=== PATIENT | female | born 1950 | race Caucasian/White ===

== ENCOUNTER 2018-12-20 12:26 | Inpatient (IN) | payer OTHER ==
[~2018-12-20] VITALS: Ht 162.6 cm; Wt 54.9 kg
[2018-12-20] VITALS (11 sets, daily range): BP systolic 80–115
[2018-12-20] MEDS ORDERED: DILTIAZEM HCL 25 MG/5 ML VIAL IVP ONE (12:45)
[2018-12-20] MEDS ORDERED: NS 500 ML IV ONE ×2 (12:45→13:15)
--- NOTE | 2018-12-20 12:45 | NUR ---
# 22 gauge angiocath placed to RAC. Use of asceptic technique. Opsite placed over site. Blood return noted. Blood for lab drawn from site. Flushed with 10 cc of normal saline. No evidence of infiltration noted. Patient tolerated well.
--- NOTE | 2018-12-20 12:50 | NUR ---
Cardiezm 20mg IVp given. Current HR is 98
--- NOTE | 2018-12-20 12:58 | NUR ---
NS 1L infusing. BP is 82/43.
--- NOTE | 2018-12-20 12:59 | NUR ---
pt getting labs drawn.
[2018-12-20 13:08] LABS: MEAN CORPUSCULAR HEMOGLOBIN 29 pg (27-31); MEAN CORPUSCULAR HGB CONC 32 % (32-36); MEAN CORPUSCULAR VOLUME 92 fL (79.0-98.0); PLATELET COUNT (AUTO) 74 K/uL (130-430); RED CELL DISTRIBUTION WIDTH 25.5 % (9.0-15.0)
--- NOTE | 2018-12-20 13:15 | NUR ---
Currently NS 500ml bolus.
[2018-12-20 13:19] LABS: RED BLOOD CELL COUNT(AUTO) 1.94 MIL/uL (4.2-6.2)
[2018-12-20 13:20] LABS: HEMOGLOBIN 5.7 g/dL (12.0-16.0)
[2018-12-20 13:21] LABS: HEMATOCRIT 17.8 % (36-48)
[2018-12-20 13:28] LABS: BILIRUBIN,URINE NEGATIVE (NEGATIVE); BLOOD, URINE TRACE (NEGATIVE); CLARITY/URINE HAZY (CLEAR); COLOR,URINE YELLOW (YELLOW); GLUCOSE,URINE NEGATIVE (NEGATIVE); KETONES,URINE NEGATIVE (NEGATIVE); LEUKOCYTE ESTERASE ,URINE NEGATIVE (NEGATIVE); NITRITE, URINE NEGATIVE (NEGATIVE); PROTEIN URINE TRACE (NEGATIVE)
[2018-12-20] MEDS ORDERED: DOPamine PREMIX 250 ML IV ONE ×2 (13:30→21:04)
[2018-12-20 13:39] LABS: BACTERIA,URINE FEW /HPF (None Seen); HYALINE CASTS, URINE 0-10 /LPF (None Seen); WBC,URINE 0-3 /HPF (0-3)
[2018-12-20 13:43] LABS: CALCIUM 8.6 mg/dL (8.4-11.0); CREATININE 2.68 mg/dL (0.55-1.30); POTASSIUM 3.8 mmol/L (3.5-5.1)
[2018-12-20] MEDS ORDERED: PIPERACILLIN/TAZO 3.375 GM in NS 50 ML IV ONE (13:45)
[2018-12-20 13:48] LABS: INR 1.5 (0.8-1.2)
[2018-12-20 13:50] LABS: ALBUMIN 1.8 g/dL (3.4-4.8)
--- NOTE | 2018-12-20 13:50 | NUR ---
Dopamine drip started at 2mcg. BP 81/33, 68 Addendum: 12/20/18 at 1411 by BOLIVARNGERARDO Dopmine drip started at 5mcg
[2018-12-20 13:52] LABS: PROTHROMBIN TIME 14.7 SECS (9.5-12.5)
[2018-12-20 14:03] LABS: BAND % (MANUAL) 17 % (0-6); BASOPHILS % (MANUAL) 0 % (0-2); EOSINOPHILS % (MANUAL) 0 % (0-7); LYMPHOCYTES % (MANUAL) 1 % (20-46); METAMYELOCYTES % 1 % (0-0); MONOCYTES % (MANUAL) 6 % (0-11)
--- NOTE | 2018-12-20 14:11 | NUR ---
Dopamine drip increased to 7mcg.
--- NOTE | 2018-12-20 14:14 | NUR ---
Dopamine drip increased to 9mcg.
--- NOTE | 2018-12-20 14:19 | NUR ---
Dopamine drip increased to 12mcg
--- NOTE | 2018-12-20 14:26 | NUR ---
Increased Dopamine drip 14mcg.
--- NOTE | 2018-12-20 14:30 | NUR ---
Zosyn currently infusing per MD order.
[2018-12-20] MEDS ORDERED: PIPERACILLIN/TAZOBACTAM 3.375 GM/VIAL (ZOSYN) IV ONE (14:37)
--- NOTE | 2018-12-20 15:41 | NUR ---
pt will be going to ICU 7. Pt will be admitted under the care of Dr. Waldron
[2018-12-20] MEDS ORDERED: PANTOPRAZOLE SODIUM 40 MG/VIAL (PROTONIX) IVP ONE (16:00)
--- NOTE | 2018-12-20 16:00 | NUR ---
Transfer to ICU 7 via ACLS protocol. Licensed nurse present. IV present no signs or symptoms of infiltration. Port-a-cath in place. Dopamine is infusing @14mcg. Report given to Cici MCKEON.
--- NOTE | 2018-12-20 16:02 | NUR ---
Opening Note Patient received via gurney and is placed in ICU-7. Patient connected to portable monitor with A-fib. Patient on 4L oxygen via nasal cannula breathing evenly and unlabored. Patient has a right chest port-a-cath infusing dopamine @ 14 mcg/min. Patient has a right forearm peripheral IV patent, flushing well, saline-locked. Patient does not complain of pain at this time. Patient in no signs of distress. Safety precautions enforced. Addendum: 12/20/18 at 1833 by Cici Hicks RN Patient is sinus tachy.
--- NOTE | 2018-12-20 17:37 | NUR ---
Blood Transfusion Patient currently receiving first unit of PRBCs. Patient in no signs of distress @ this time. No complaints of pain stated.
--- NOTE | 2018-12-20 17:45 | NUR ---
New consult paged to Dr. Quinonez, spoke with exchange Tameka.
--- NOTE | 2018-12-20 19:04 | NUR ---
Closing Note Patient endorsed to retail shift supervisor RN using SBAR format. Patient sleeping @ this time. No signs of distress noted.
--- NOTE | 2018-12-20 19:45 | NUR ---
the blood transfusion:#1/2 units has completed.no adverse reaction manifested.the blood is administered via a central line:location;rt.svc;port-a-cath.i have initiated the ns-flush via the rt.svc;port-a-cath.
--- NOTE | 2018-12-20 20:00 | NUR ---
pt.assessed.v/s assessed.pt.presents rt.svc;port-a-cath.pt.receiving the administration;dopamine-drip;dose-rate ;20mcq/kg/min. the dopamine-drip administered via peripheral line:location;rt.forearm.iv access intact;patent absent infiltration/ inflammation.pt.presents respiratory status;labored/compromised.pt.receiving the administration o2 therapy @2l /min via nasal cannulae.pt.capable to reposition self.diet status;npo.pt.had requested a blanket;i have provided the blanket; durbin. call light/telephone w/in reach of the pt.
--- NOTE | 2018-12-20 20:30 | NUR ---
;gi has assessed the pt.f/u possible gi bleed. surmised post assessment of the pt.that the low h/h is not r/t gi bleed.
[2018-12-20] MEDS ORDERED: VANCOMYCIN HCL 1 GM/NS PREMIX 250 ML IV ONE (21:00)
--- NOTE | 2018-12-20 21:00 | NUR ---
[id number] medications administered.i have assisted the pt.w/the bedpan.i have provided ice ships;small quantity. Addendum: 12/21/18 at 0207 by Artemio Purcell RN telephoned the unit.i apprised that the pt.presented labored breathing. ordered hhn-treatments;q-4hrs/hhn:q-1hr/p;sob,wheezes.
[2018-12-20] MEDS ORDERED: VANCOMYCIN HCL 1000 MG/VIAL IV ONE (21:04)
[2018-12-20] MEDS ORDERED: PIPERACILLIN/TAZOBACTAM 2.25 GM VIAL IV ONE (21:04)
--- NOTE | 2018-12-20 21:30 | NUR ---
i have initiated the administration of the #2/2 units prbc's.
[2018-12-20] MEDS: IPRATROPIUM BROM 0.5 MG/2.5 ML VIAL.NEB (ATROVENT) INH SCH ×2 (21:31→23:00)
[2018-12-20] MEDS: ALBUTEROL SULFATE 0.083% 2.5 MG/3 ML VIAL.NEB INH SCH ×2 (21:31→23:00)
[2018-12-20] MEDS: PANTOPRAZOLE SODIUM 40 MG/VIAL (PROTONIX) IVP SCH (21:39)
[2018-12-20] MEDS: PIPERACILLIN/TAZO 2.25G/DEX-IS 50 ML IV SCH (21:40)
--- NOTE | 2018-12-20 21:58 | NUR ---
MD EDUARDO Called Dr. Rose's answering service for a morning consult for A-FIB [phone] Spoke to Clare
[2018-12-20] MEDS: D5NS 1,000 ML IV SCH (22:56)
--- NOTE | 2018-12-20 23:00 | NUR ---
pt.requested assistance w/ the bedpan.i have assisted the pt.w/ the bedpan.blood transfusion infusing. call light/w/in reach of the pt.
--- NOTE | 2018-12-20 23:15 | NUR ---
IV IV inserted in right forearm after one attempt with 22ga angiocath. IV site flushed with 5ml of NS no redness or swelling noted @ site.
[2018-12-21] VITALS (24 sets, daily range): BP systolic 73–155
--- NOTE | 2018-12-21 | NUR ---
pt assessed.v/s assessed.blood transfusion in progress.no adverse reaction manifested.dopamine-drip infusing via peripheral line;location rt.forearm:intact;patent;absent infiltration/inflammation.o2-sat%=98%respiratory status:labored.breathing pattern/character. iv fluids infusing.no co pain,nausea.pt.capable to reposition self.call light/telephone w/in reach of the pt.
--- NOTE | 2018-12-21 00:30 | NUR ---
the blood transfusion #2/2 units has completed.no adverse reaction manifested.pt.requested assistance w the bedpan. i have assisted the pt w/ bedpan.i have noted has order diet status;clear liquids.i have apprised the pt..i have provided water pitcher,cups,kleenex boxes,toiletries.i have provide ice chips. luisrn/chg has es-tablish an additional iv access.rt.forearm.
--- NOTE | 2018-12-21 01:00 | NUR ---
i have decreased the dopamine-drip rate to 17mcq/kg/min.2/t b/p status.
[2018-12-21] MEDS: IPRATROPIUM BROM 0.5 MG/2.5 ML VIAL.NEB (ATROVENT) INH PRN (01:14)
[2018-12-21] MEDS: ALBUTEROL SULFATE 0.083% 2.5 MG/3 ML VIAL.NEB INH PRN (01:15)
[2018-12-21 01:24] LABS: HEMATOCRIT 27.2 % (36-48); HEMOGLOBIN 9.4 g/dL (12.0-16.0)
--- NOTE | 2018-12-21 01:30 | NUR ---
pt.requested hhn-treatment.r/t apprised applied the hhn-treatment.i have apprised the pt lefty/rebeka for suction. pt.has return the demonstration and is capable to suction self.
--- NOTE | 2018-12-21 03:00 | NUR ---
i have assisted the pt.w/the bedpan.no additional requests.
--- NOTE | 2018-12-21 03:10 | NUR ---
MD EDUARDO Called [facility] for Dr. Waldron. Dr. Benavides air pollution inspector [phone] Spoke to Lisa
--- NOTE | 2018-12-21 03:33 | NUR ---
MD EDUARDO Called [facility] for a second time for Dr. Benavides [phone] Spoke with Michelle
--- NOTE | 2018-12-21 03:45 | NUR ---
DR NBA Benavides notified regarding one time order for Dopamine and pt having elevated heart rate and low BP. Orders received. Levophed drip 4mg in 250 D5W, titrate to maintain SBP greater than 90.
--- NOTE | 2018-12-21 04:00 | NUR ---
pt.nate.tre;rn/chg has apprised of the pt's status.low b/p.rapid heart rate. has ordered levophed-drip. i have initiated the administration levophed-dose rate:5mcq/min.rate 18ml/hr.via central line;rt.svc;port-a-cath.no c/o pain,nausea. pt.capable to reposition self.no requests posited @this hour.hanny light/telephone w/in reach of the pt.
[2018-12-21] MEDS ORDERED: NOREPINEPHRINE 4 MG/4 ML VIAL IV ONE (04:01)
[2018-12-21] MEDS: NOREPINEPHRINE BITARTRATE 4 MG in D5W 246 ML IV PRN ×2 (04:02→18:50)
--- NOTE | 2018-12-21 05:45 | NUR ---
i have assisted the pt w/the bedpan.i have changed the central line dsg per protocol.i have administered zosyn:0600a dose. pt.repositioned.call light/telephone placed w/in the reach of the pt.
[2018-12-21] MEDS: PIPERACILLIN/TAZO 2.25G/DEX-IS 50 ML IV SCH ×3 (05:46→22:26)
--- NOTE | 2018-12-21 06:47 | NUR ---
Nutrition Update Ceferino Scale 14 noted. Pt admitted for Gastrointestinal Bleed Diet: Clear liquid BMI: 20.9 kg/m2 RD to follow per nutrition care standards.
[2018-12-21 07:02] LABS: HEMATOCRIT 26.2 % (36-48); HEMOGLOBIN 8.9 g/dL (12.0-16.0)
[2018-12-21 07:09] LABS: ALBUMIN 1.3 g/dL (3.4-4.8); CALCIUM 7.6 mg/dL (8.4-11.0); CREATININE 1.55 mg/dL (0.55-1.30); TOTAL BILIRUBIN 1.9 mg/dL (0.0-1.0)
--- NOTE | 2018-12-21 07:20 | NUR ---
Received patient and report from NOC shift. In no acute distress.
[2018-12-21] MEDS: IPRATROPIUM BROM 0.5 MG/2.5 ML VIAL.NEB (ATROVENT) INH SCH ×5 (07:48→23:00)
[2018-12-21] MEDS: ALBUTEROL SULFATE 0.083% 2.5 MG/3 ML VIAL.NEB INH SCH ×5 (07:48→23:00)
[2018-12-21] MEDS ORDERED: NACL 0.9% 1,000 ML IV ONE (08:00)
--- NOTE | 2018-12-21 08:01 | NUR ---
CONSULT PULMO. DR. MEYER CALLED (DR. [facility]ES [facility]ICAL DOCTOR) SPOKE TO ZAYRA DIALED [phone] TINAJERO
[2018-12-21] MEDS: VANCOMYCIN HCL 750 MG in NS 250 ML IV SCH (09:48)
[2018-12-21] MEDS: PANTOPRAZOLE SODIUM 40 MG/VIAL (PROTONIX) IVP SCH ×2 (09:48→20:26)
--- NOTE | 2018-12-21 09:50 | NUR ---
MD Welsh new orders for esposito catheter placement and SCDs.
[2018-12-21] MEDS ORDERED: KCL 40 mEq in 100 mL (PREMIX) 100 ML IV ONE (10:15)
[2018-12-21] MEDS ORDERED: ALBUMIN HUMAN 25% 50 ML IV ONE (10:15)
[2018-12-21] MEDS ORDERED: ONDANSETRON HCL 4 MG/2 ML VIAL IVP PRN (10:15)
--- NOTE | 2018-12-21 10:30 | NUR ---
Inserted esposito catheter 16 wolof, patient tolerated well.
--- NOTE | 2018-12-21 11:23 | NUR ---
CONSULT ONCOLOGY DR. BARBA CALLED (DR. ZUNIGA [employer]) SPOKE TO ZAYRA DIALED [phone] CREWS
[2018-12-21] MEDS: D5NS 1,000 ML IV SCH ×2 (11:30→20:27)
--- NOTE | 2018-12-21 11:50 | NUR ---
Patient stated has 7/10 pain related to chest. Notified MD Bal, new order morphine 2 mg every 4 hours PRN.
--- NOTE | 2018-12-21 12:00 | NUR ---
MD Bal at bedside, approved order for PICC.
[2018-12-21] MEDS ORDERED: MORPHINE 2 MG/ML INJ. SYRINGE IVP PRN (12:30)
--- NOTE | 2018-12-21 12:30 | NUR ---
Patient's signed consent for PICC line as requested by patient.
--- NOTE | 2018-12-21 13:17 | NUR ---
PICC nurse Jorge requested to contact nephro for consent for PICC nurse, paged MD Barriga, order denied. New order triple lumen IJ performed by surgery.
[2018-12-21 13:26] LABS: HEMATOCRIT 24.1 % (36-48); HEMOGLOBIN 8.1 g/dL (12.0-16.0)
--- NOTE | 2018-12-21 13:35 | NUR ---
Informed family MD Barriga's denial of PICC line order and new order for triple lumen IJ surgery placed by surgeon, family refused. Educated family benefits and risks of triple lumen.
[2018-12-21] MEDS: HYDROCORTISONE SOD SUCC 100 MG/2 ML VIAL IVP SCH ×2 (15:08→22:25)
[2018-12-21] MEDS: METOCLOPRAMIDE HCL 10 MG/2 ML VIAL IVP SCH ×2 (15:08→22:25)
--- NOTE | 2018-12-21 17:00 | NUR ---
MD Barriga at bedside.
[2018-12-21] MEDS ORDERED: ALBUMIN HUMAN 25% 100 ML IV ONE (18:00)
--- NOTE | 2018-12-21 19:15 | NUR ---
Endorsed patient and report to oncoming shift nurse. Patient in no acute distress.
--- NOTE | 2018-12-21 19:20 | NUR ---
PM SHIFT ASSESSMENT Pt is alert and oriented. O2 via NC @ 4L, RR even and unlabored. SR noted on monitor. Skin warm and dry. Salas catheter in place and draining to gravity. IVF infusing, no signs of infiltration noted. Safety precautions in place, call light within reach. Will continue to monitor.
[2018-12-22] VITALS (25 sets, daily range): BP systolic 104–139
[2018-12-22] MEDS: D5NS 1,000 ML IV SCH ×2 (02:30→13:33)
[2018-12-22] MEDS: ALBUTEROL SULFATE 0.083% 2.5 MG/3 ML VIAL.NEB INH SCH ×6 (04:10→23:00)
[2018-12-22] MEDS: IPRATROPIUM BROM 0.5 MG/2.5 ML VIAL.NEB (ATROVENT) INH SCH ×6 (04:12→23:00)
[2018-12-22] MEDS: METOCLOPRAMIDE HCL 10 MG/2 ML VIAL IVP SCH ×3 (05:46→21:55)
[2018-12-22] MEDS: HYDROCORTISONE SOD SUCC 100 MG/2 ML VIAL IVP SCH ×3 (05:46→21:56)
[2018-12-22] MEDS: PIPERACILLIN/TAZO 2.25G/DEX-IS 50 ML IV SCH ×3 (05:47→21:55)
[2018-12-22] MEDS: NOREPINEPHRINE BITARTRATE 4 MG in D5W 246 ML IV PRN ×2 (05:56→21:57)
[2018-12-22 06:13] LABS: ALBUMIN 1.6 g/dL (3.4-4.8); CALCIUM 7.6 mg/dL (8.4-11.0); CREATININE 1.09 mg/dL (0.55-1.30)
[2018-12-22 06:19] LABS: HEMATOCRIT 22.4 % (36-48); HEMOGLOBIN 7.7 g/dL (12.0-16.0); MEAN CORPUSCULAR HEMOGLOBIN 30 pg (27-31); MEAN CORPUSCULAR HGB CONC 35 % (32-36); MEAN CORPUSCULAR VOLUME 87 fL (79.0-98.0); RED BLOOD CELL COUNT(AUTO) 2.57 MIL/uL (4.2-6.2); RED CELL DISTRIBUTION WIDTH 22.4 % (9.0-15.0)
[2018-12-22 06:26] LABS: POTASSIUM 2.6 mmol/L (3.5-5.1)
[2018-12-22 06:45] LABS: PLATELET COUNT (AUTO) 37 K/uL (130-430)
--- NOTE | 2018-12-22 06:54 | NUR ---
paged dr. ritchie for critical labs per nurse dialed [phone] spoke to davida
--- NOTE | 2018-12-22 07:23 | NUR ---
paged dr. jose for critical labs per nurse dialed [phone] spoke to hazel
--- NOTE | 2018-12-22 07:28 | NUR ---
ENDORSEMENT Pt care endorsed to dayshift RN using nursing SBAR.
[2018-12-22] MEDS ORDERED: KCL 40 mEq in 100 mL (PREMIX) 100 ML IV ONE (07:30)
[2018-12-22 07:41] LABS: BAND % (MANUAL) 16 % (0-6); BASOPHILS % (MANUAL) 0 % (0-2); EOSINOPHILS % (MANUAL) 0 % (0-7); LYMPHOCYTES % (MANUAL) 2 % (20-46); MONOCYTES % (MANUAL) 2 % (0-11)
--- NOTE | 2018-12-22 08:00 | NUR ---
RN OPENING NOTE PATIENT IS RESTING IN BED. ALERT ORIENTED X4, PATIENT DENIES PAIN OR DISCOMFORT. PATIENT WAS ASSESSED, VITAL SIGNS ARE STABLE. PATIENT'S BED AT LOW POSITION AND CALL LIGHT WITHIN REACH, REPORTED THE LOW HB LEVEL AND LOW PLATLETS WELL LOW k TO DR. CREWS. ORDERS RECEIVED TO TRANSFUSE 1 UNIT PRBCS, ONE UNIT PLATLETS AND GIVE A POTASSIUM RIDER OF 40 MEQ, WILL FOLLOW UP.
[2018-12-22] MEDS: VANCOMYCIN HCL 750 MG in NS 250 ML IV SCH (08:56)
[2018-12-22] MEDS: PANTOPRAZOLE SODIUM 40 MG/VIAL (PROTONIX) IVP SCH ×2 (08:57→21:25)
--- NOTE | 2018-12-22 10:00 | NUR ---
RN NOTE FAMILY BY BED SIDE, PATIENT AND FAMILY WERE EDUCATED ABOUT THE DISEASE PROCESS , FALL PREVENTION, PATIENT WAS GIVEN HER MEDICATION, POTASSIUM RIDER WERE HUNG FOR THE PATIENT, AWAITING THE BLOOD AND PLATLETS. TO BE TRANSFUSED WHEN BECOME READY, WILL CONTINUE TO MONITOR.
--- NOTE | 2018-12-22 11:27 | NUR ---
RN NOTE STARTED BLOOD TRANSFUSION OF ONE UNIT PRBcs at 1115 AM. vital signs were taken , will wait in the room with the patient for the coming 15 min after starting the blood and take the second vital signs then will follow up with the patient closely.
--- NOTE | 2018-12-22 12:20 | NUR ---
RN NOTE PATIENT WAS SERVED HER LUNCH, IS BY THE BEDSIDE, PATIENT'S IS STILL RECEIVING HER BLOOD TRANSFUSION. DENIES PAIN OR SOB. WILL CONTINUE TO MONITOR.
--- NOTE | 2018-12-22 13:30 | NUR ---
RN NOTE PATIENT IS DONE WITH BLOOD TRANSFUSION, WILL REQUEST THE PLATELETS AFTER GIVING THE PATIENT HER VANCOMYCIN. WILL CONTINUE TO MONITOR. Addendum: 12/22/18 at 1912 by Lina Zhao RN AFTER GIVING THE PATIENT HER ZOSYN AND NOT VANCO
--- NOTE | 2018-12-22 16:00 | NUR ---
RN NOTE PATIENT IS RESTING IN BED, PATIENT HAS A BM WAS CLEANED UP, PLATELETS WERE REQUESTED FROM THE BLOOD BANK, PATIENT WAS EDUCATED ABOUT ANEMIA AND HOW TO PREVENT FALLS WILL CONTINUE TO MONITOR.
--- NOTE | 2018-12-22 18:00 | NUR ---
RN CLOSING NOTE PATIENT IS RESTING IN BED, PATIENT HAS ANOTHER BM, LOOSE NO MELENA OR BLOOD. TALKED WITH DR. SARAVIA ABOUT HER STOOL. PATIENT GOT HER DINNER AND WE STARTED HER PLATELET TRANSFUSION, , THEN PATIENT WAS SERVED HER DINNER, IS BY BEDSIDE, WILL ENDORSE TO NEXT SHIFT.
--- NOTE | 2018-12-22 20:00 | NUR ---
AWAKE, ALERT, ORIENTED. IN NO APPARENT DISTRESS. DENIES ACUTE PAIN. ON O2 AT 3L/MIN/NC. BREATH SOUNDS WITH OCCASIONAL WHEEZING. BOWEL SOUNDS (+). PULSES PALPABLE. SKIN W/D. COLOR SATISFACTORY. HOB UP TO COMFORT. SIDE RAILS UP. CALL LIGHTS WITHIN REACH. RIGHT SC MISTY-CATH DRSG D/I. LEVOPHED DRIP INFUSING AT 4 MCG/MIN. HAYES CATH PATENT DRAINING HAZY ANAMARIA URINE TO GRAVITY. NICCI SCD'S IN PLACE.PLATELETPHERESIS INFUSING. SINUS RHYTHM. AT BEDSIDE VISITING.
--- NOTE | 2018-12-22 21:15 | NUR ---
PLATELETPHERESIS ALL INFUSED. NO ADVERSE REACTIONS.
[2018-12-23] VITALS (25 sets, daily range): BP systolic 106–138
--- NOTE | 2018-12-23 | NUR ---
SOUNDLY ASLEEP. NO DISTRESS NOTED. ABLE TO REPOSITION SELF WELL.
--- NOTE | 2018-12-23 02:00 | NUR ---
DOZES ON AND OFF. VOICE VERY SOFT, ALMOST WHISPERING.
[2018-12-23] MEDS: D5NS 1,000 ML IV SCH ×2 (03:16→08:38)
--- NOTE | 2018-12-23 03:25 | NUR ---
C/O STUFFY NOSE. BREATHING TREATMENT GIVEN BY RT
[2018-12-23] MEDS: ALBUTEROL SULFATE 0.083% 2.5 MG/3 ML VIAL.NEB INH SCH ×6 (03:33→23:00)
[2018-12-23] MEDS: IPRATROPIUM BROM 0.5 MG/2.5 ML VIAL.NEB (ATROVENT) INH SCH ×6 (03:33→23:00)
--- NOTE | 2018-12-23 04:00 | NUR ---
SLEPT INTERMITTENTLY. NO COMPLAINTS OFFERED AT THIS TIME.
--- NOTE | 2018-12-23 06:00 | NUR ---
SLEPT FOR LONG PERIODS OF TIME. UO ADEQUATE. NO COMPLAINTS OFFERED AT THIS TIME. REMAINS IN GUARDED CONDITION.
--- NOTE | 2018-12-23 06:00 | NUR ---
SLEPT FOR LONG PERIODS OF TIME.
[2018-12-23 06:09] LABS: BASOPHILS % (AUTO) 0.2 % (0.0-2.0); HEMATOCRIT 26.3 % (36-48); HEMOGLOBIN 8.9 g/dL (12.0-16.0); LYMPHOCYTES # (AUTO) 0.2 K/uL (1.0-5.5); MEAN CORPUSCULAR HEMOGLOBIN 30 pg (27-31); MEAN CORPUSCULAR HGB CONC 34 % (32-36); MEAN CORPUSCULAR VOLUME 88 fL (79.0-98.0); MONOCYTES # (AUTO) 0.3 K/uL (0.0-1.0); MONOCYTES % (AUTO) 3.3 % (1.7-9.3); NEUTROPHILS # (AUTO) 7.1 K/uL (1.8-7.7); NEUTROPHILS % (AUTO) 94.5 % (40.0-70.0); PLATELET COUNT (AUTO) 54 K/uL (130-430); RED BLOOD CELL COUNT(AUTO) 2.98 MIL/uL (4.2-6.2); RED CELL DISTRIBUTION WIDTH 20.1 % (9.0-15.0); WHITE BLOOD COUNT (AUTO) 7.5 K/uL (4.8-10.8)
[2018-12-23 06:26] LABS: ALBUMIN 1.5 g/dL (3.4-4.8); CALCIUM 7.9 mg/dL (8.4-11.0); CREATININE 0.99 mg/dL (0.55-1.30); TOTAL BILIRUBIN 1.3 mg/dL (0.0-1.0)
[2018-12-23] MEDS: METOCLOPRAMIDE HCL 10 MG/2 ML VIAL IVP SCH ×3 (06:30→21:32)
[2018-12-23] MEDS: HYDROCORTISONE SOD SUCC 100 MG/2 ML VIAL IVP SCH ×3 (06:30→21:32)
[2018-12-23] MEDS: PIPERACILLIN/TAZO 2.25G/DEX-IS 50 ML IV SCH ×3 (06:31→21:31)
--- NOTE | 2018-12-23 06:49 | NUR ---
PAGED DR. MARES FOR CRITICAL LABS PER NURSE DIALED [phone] SPOKE TO MYKE
--- NOTE | 2018-12-23 07:00 | NUR ---
DR ARANGO RETURNED CALL, POTASSIUM 2.7 REPORTED. WANTED TO KNOW BUN/CREATININE. RESULTS STILL PENDING. ORDERED TO CALL HER BACK WHEN BUN/CREATININE RESULTS ARE AVAILABLE. RELAYED TO LUIS MIGUEL MCKEON , AM SHIFT.
[2018-12-23 07:13] LABS: POTASSIUM 2.7 mmol/L (3.5-5.1)
--- NOTE | 2018-12-23 07:20 | NUR ---
Opening Note Received plan of care via sbar from endorsing nurse Lico RN.
--- NOTE | 2018-12-23 07:27 | NUR ---
Called Dr. Reece and reported Potassium BUN and Creatinine. Received order for 40 meq KCL IV once.
[2018-12-23] MEDS ORDERED: KCL 40 mEq in 100 mL (PREMIX) 100 ML IV ONE (07:30)
[2018-12-23] MEDS: PANTOPRAZOLE SODIUM 40 MG/VIAL (PROTONIX) IVP SCH ×2 (08:38→21:31)
[2018-12-23] MEDS: VANCOMYCIN HCL 750 MG in NS 250 ML IV SCH (11:01)
[2018-12-23] MEDS: D5/0.45 NS 1,000 ML IV SCH (12:04)
--- NOTE | 2018-12-23 12:07 | NUR ---
SS Note: RETAIL COVERAGE MERCHANDISER was referred to see pt for DCP. RETAIL COVERAGE MERCHANDISER met with pt and spouse at bedside. Pt states she was diagnosed with lung CA in April 2018, and has been receiving chemotherapy treatment. Pt states prior to coming in she was independent with her ADL's. Pt also lives in a one sharon home with no steps to get to/from front door. Pt lives with spouse, Navi and finds support from her spouse. Pt denies any history of mental health and drug use, but was a smoker prior to Lung CA diagnosis. Pt denies being depressed currently. RETAIL COVERAGE MERCHANDISER provided pt/spouse with advanced directive, POLST and support group phone numbers. Pt/spouse stated that they want to focus on her treatment first and will look at support group after. Pt states they prefer to be discharged with home health with oxygen and no specific provider. Pt's spouse stated that Maryann (CM of HCP) will talk to them more about DCP. SS will remain available when needed.
--- NOTE | 2018-12-23 19:35 | NUR ---
Opening Note Pt in bed, AAO. Able to make needs known. Pt SR on the monitor, on 2L NC, saturating in the high 90s. Pt VSS. No s/s of distress noted. No pain noted. Pt has RFA 22g and Right Port-a-cath. IV site has IVF running. No s/s of infiltration noted. No skin breakdown noted, pt able to turn self. Bed locked in lowest position, call light in reach, and safety precautions in place. Will continue to monitor.
[2018-12-24] VITALS (15 sets, daily range): BP systolic 120–135
--- NOTE | 2018-12-24 00:30 | NUR ---
RN Rounds Pt in bed asleep. No s/s of distress noted. VSS. Pt able to make needs known. Will continue to monitor.
[2018-12-24] MEDS: IPRATROPIUM BROM 0.5 MG/2.5 ML VIAL.NEB (ATROVENT) INH SCH ×6 (03:00→23:00)
[2018-12-24] MEDS: ALBUTEROL SULFATE 0.083% 2.5 MG/3 ML VIAL.NEB INH SCH ×6 (03:00→23:00)
[2018-12-24] MEDS: D5/0.45 NS 1,000 ML IV SCH ×2 (03:46→17:27)
--- NOTE | 2018-12-24 04:45 | NUR ---
RN Rounds Pt in bed asleep. No s/s of distress noted. VSS. Will continue to monitor.
--- NOTE | 2018-12-24 05:30 | NUR ---
Pt c/o of SOB w/ saturations in the mid-high 80s. RT called, and PRN breathing Tx being done. Will continue to monitor.
[2018-12-24] MEDS: ALBUTEROL SULFATE 0.083% 2.5 MG/3 ML VIAL.NEB INH PRN (05:35)
[2018-12-24] MEDS: IPRATROPIUM BROM 0.5 MG/2.5 ML VIAL.NEB (ATROVENT) INH PRN (05:36)
[2018-12-24 06:00] LABS: HEMATOCRIT 31.1 % (36-48); HEMOGLOBIN 10.5 g/dL (12.0-16.0); MEAN CORPUSCULAR HEMOGLOBIN 30 pg (27-31); MEAN CORPUSCULAR HGB CONC 34 % (32-36); MEAN CORPUSCULAR VOLUME 89 fL (79.0-98.0); RED BLOOD CELL COUNT(AUTO) 3.51 MIL/uL (4.2-6.2); RED CELL DISTRIBUTION WIDTH 20.1 % (9.0-15.0)
[2018-12-24] MEDS: METOCLOPRAMIDE HCL 10 MG/2 ML VIAL IVP SCH ×3 (06:00→22:41)
[2018-12-24] MEDS: HYDROCORTISONE SOD SUCC 100 MG/2 ML VIAL IVP SCH ×3 (06:00→22:42)
[2018-12-24] MEDS: PIPERACILLIN/TAZO 2.25G/DEX-IS 50 ML IV SCH ×3 (06:00→22:41)
[2018-12-24 06:04] LABS: INR 1.1 (0.8-1.2); PROTHROMBIN TIME 11.5 SECS (9.5-12.5)
[2018-12-24 06:07] LABS: ALBUMIN 1.6 g/dL (3.4-4.8); CALCIUM 8.1 mg/dL (8.4-11.0); POTASSIUM 3.2 mmol/L (3.5-5.1); TOTAL BILIRUBIN 1.4 mg/dL (0.0-1.0)
--- NOTE | 2018-12-24 06:32 | NUR ---
Closing Note Pt in bed, AAO. SR on the monitor. 2L NC on w/ saturations in the high 90s. Pt not c/o of SOB anymore. No s/s of distress noted. IVF running, IV sites C/D/I. No s/s of infiltration noted. Pt has esposito catheter draining urine to gravity. Bed locked in lowest position, call light in reach, and safety precautions in place. Will continue to monitor.
--- NOTE | 2018-12-24 07:07 | NUR ---
Endorsement Report given to oncoming RN at bedside via SBAR approach.
[2018-12-24 07:14] LABS: PLATELET COUNT (AUTO) 30 K/uL (130-430)
--- NOTE | 2018-12-24 07:30 | NUR ---
OPENING NOTES, PT IN BED, PT IS AAOX4, DENIES PAIN, TACHYPNEIC, O2 SAT IS 95% ON 3L O2 PER NC. IV FLUIDS INFUSING WELL. NO S/S OF INFILTRATION. SAFETY PRECAUTION IN PLACE. CALL LIGHT IN REACH. BED IN LOW POSITION. WILL CONT TO MONITOR. Addendum: 12/24/18 at 0826 by Demond Orantes RN CORRECTION: IV FLUIDS STOPPED DUE TO SWELLING AND S/S OF INFILTRATION.
--- NOTE | 2018-12-24 08:03 | NUR ---
DR TODD HERE AND SEEN PT, IN ROOM TALKING TO PT AND FAMILY. MD MADE AWARE OF THE PLT LEVEL OF 30.
[2018-12-24] MEDS: PANTOPRAZOLE SODIUM 40 MG/VIAL (PROTONIX) IVP SCH ×2 (08:14→22:41)
[2018-12-24] MEDS: VANCOMYCIN HCL 750 MG in NS 250 ML IV SCH (08:15)
[2018-12-24] MEDS ORDERED: FLUCONAZOLE 200 MG TABLET (DIFLUCAN) PO ONE (08:15)
[2018-12-24 08:28] LABS: BAND % (MANUAL) 9 % (0-6); BASOPHILS % (MANUAL) 0 % (0-2); EOSINOPHILS % (MANUAL) 2 % (0-7); LYMPHOCYTES % (MANUAL) 4 % (20-46); MONOCYTES % (MANUAL) 2 % (0-11)
[2018-12-24] MEDS: POTASSIUM CHLORIDE 20 MEQ TAB.PRT.SR PO SCH ×2 (08:53→13:47)
--- NOTE | 2018-12-24 10:00 | NUR ---
WOUND PHOTOS TAKEN. PT TOLERATED WELL.
--- NOTE | 2018-12-24 11:30 | NUR ---
SPOKE WITH DIRECTOR OF TAX SERVICES CASSANDRA OF [facility] RE BED, I WAS TOLD THEY ARE STILL CALLING THE NURSE. WILL CALL WHEN BED IS READY.
--- NOTE | 2018-12-24 12:00 | NUR ---
PT ON TELE MONITORING, FOR TRANSFER TO [facility] UNIT.
--- NOTE | 2018-12-24 12:22 | NUR ---
Wound Evaluation: Wound Consult ordered for Low Ceferino Score. Patient evaluated for a low Ceferino score of 17. Patient was awake, alert, oriented and received in a Aung Bed with an IsoFlex JONY mattress. Patient is able to turned in bed. Recommend reposition patient side to side only every 2 hours with pillow support. Elevate, off-load and float bilateral heels with pillows. Offload pressure areas with pillows for pressure re-distribution. Perform skin care and monitor skin integrity Q shift. Initiate low air-loss therapy. Skin assessment: 1. Right Buttock: Dry skin tear. 2. Back:Dry lesions from radiation treatments. 3. Right ElbowBlanchable redness (scab, present on admission, fell off). Recommend: Cleanse involved areas with normal Saline. Pat dry. Apply moisture barrier cream to involved areas qid, and prn for soiling.
--- NOTE | 2018-12-24 14:15 | NUR ---
SBAR REPORT GIVEN TO MIKE PATTON OF [facility].
--- NOTE | 2018-12-24 14:50 | NUR ---
Received from ICU Patient received from ICU alert, awake and verbally responsive, on 02 at 3lpm via NC, respiration even and unlabored, denies any pain or discomfort at this time. IVF infusing well. Salas catheter in place, draining yellow urine to urine bag via gravity. Oriented patient to room, call light and bed control, patient verbalized understanding. at bedside. Call light within the reach. Will continue to monitor.
--- NOTE | 2018-12-24 15:00 | NUR ---
CLOSING NOTES, PATIENT TRANSFERRED TO ROOM 126A AND ENDORSE TO MST MIKE PATTON. PT STABLE ON TRANSFER. ALL BELONGINGS SENT WITH PATIENT.
--- NOTE | 2018-12-24 16:30 | NUR ---
RN ROUNDS Patient remain to be alert, awake and verbally responsive. Denies any pain or discomfort at this time. at bedside. Call light within the reach.
--- NOTE | 2018-12-24 19:05 | NUR ---
Closing Notes Patient remain to be alert, awake and verbally responsive. No moaning or grimacing at this time. respiration even and unlabored, on 02 at 3lpm via NC. at bedside. IVF infusing well. Salas catheter in place and intact, draining yellow urine to urine bag via gravity. Call light within the reach. Will endorse to the next shift.
--- NOTE | 2018-12-24 19:20 | NUR ---
Opening note Patient is awake, AOx4, resting in bed. Nonlabored breathing on 2L NC. IVF infusing via IV to LFA. Bed is locked to lowest position, side rails up 3x, call light w/in reach. Updated board and reviewed plan of care.
--- NOTE | 2018-12-24 22:42 | NUR ---
Medications Due medications given. Patient educated on side effects and she verbalized understanding. IVF primary tubing and secondary tubing were changed per hospital policy. Patient is comfortable and denies pain. Will continue to monitor.
[2018-12-25 00:39] VITALS: BP_SYST 123
--- NOTE | 2018-12-25 02:11 | NUR ---
RN rounds Patient is awake, no distress nor SOB. IVF infusing well. She requested to have the door closed and has no further needs.
[2018-12-25] MEDS: IPRATROPIUM BROM 0.5 MG/2.5 ML VIAL.NEB (ATROVENT) INH SCH ×6 (03:00→23:00)
[2018-12-25] MEDS: ALBUTEROL SULFATE 0.083% 2.5 MG/3 ML VIAL.NEB INH SCH ×6 (03:00→23:00)
--- NOTE | 2018-12-25 04:21 | NUR ---
RN rounds Patient is resting with eyes closed, easily aroused, no distress nor SOB. IVF infusing well. Safety precautions in place and call light w/in reach.
[2018-12-25] MEDS: ALBUTEROL SULFATE 0.083% 2.5 MG/3 ML VIAL.NEB INH PRN (05:12)
[2018-12-25] MEDS: IPRATROPIUM BROM 0.5 MG/2.5 ML VIAL.NEB (ATROVENT) INH PRN (05:12)
[2018-12-25] MEDS: HYDROCORTISONE SOD SUCC 100 MG/2 ML VIAL IVP SCH ×3 (05:59→21:02)
[2018-12-25] MEDS: METOCLOPRAMIDE HCL 10 MG/2 ML VIAL IVP SCH ×3 (05:59→21:03)
[2018-12-25] MEDS: D5/0.45 NS 1,000 ML IV SCH (06:00)
[2018-12-25] MEDS: PIPERACILLIN/TAZO 2.25G/DEX-IS 50 ML IV SCH ×3 (06:00→21:05)
[2018-12-25 06:35] LABS: BASOPHILS % (AUTO) 0.3 % (0.0-2.0); EOSINOPHILS % (AUTO) 0.2 % (0.0-4.0); HEMATOCRIT 32.5 % (36-48); HEMOGLOBIN 10.9 g/dL (12.0-16.0); LYMPHOCYTES # (AUTO) 0.2 K/uL (1.0-5.5); LYMPHOCYTES % (AUTO) 3.6 % (20.5-51.5); MEAN CORPUSCULAR HEMOGLOBIN 30 pg (27-31); MEAN CORPUSCULAR HGB CONC 34 % (32-36); MEAN CORPUSCULAR VOLUME 89 fL (79.0-98.0); MONOCYTES # (AUTO) 0.2 K/uL (0.0-1.0); MONOCYTES % (AUTO) 3.2 % (1.7-9.3); NEUTROPHILS # (AUTO) 5.6 K/uL (1.8-7.7); NEUTROPHILS % (AUTO) 92.7 % (40.0-70.0); RED BLOOD CELL COUNT(AUTO) 3.66 MIL/uL (4.2-6.2); RED CELL DISTRIBUTION WIDTH 20.2 % (9.0-15.0)
[2018-12-25 07:26] LABS: PLATELET COUNT (AUTO) 18 K/uL (130-430)
--- NOTE | 2018-12-25 07:36 | NUR ---
Endorsed report to Shirin MCKEON
--- NOTE | 2018-12-25 07:37 | NUR ---
report received at the bedside. patient aaox 4. dyspnea on exertion. lungs bilaterally with wheezes and crackles at the bases and moist. has oxygen 2lnc. O2Sat 92%. vitals signs stable. afebrile. has iv access on the left forearm #22. iv fluids D5 1/2NS 70cc/hr infusing. bed low position, alarmed and locked. call lights within reach. hourly rounding. has esposito catheter in placed draining amaury yellow urine. has scds bilaterally. in placed.
[2018-12-25 07:38] LABS: ALBUMIN 1.7 g/dL (3.4-4.8); CALCIUM 7.9 mg/dL (8.4-11.0); CREATININE 0.89 mg/dL (0.55-1.30); POTASSIUM 3.7 mmol/L (3.5-5.1); TOTAL BILIRUBIN 1.4 mg/dL (0.0-1.0)
[2018-12-25 07:45] VITALS: BP_SYST 118
[2018-12-25] MEDS ORDERED: FUROSEMIDE 20 MG/2 ML VIAL IVP ONE ×2 (07:45→14:00)
[2018-12-25] MEDS: PANTOPRAZOLE SODIUM 40 MG/VIAL (PROTONIX) IVP SCH ×2 (07:57→21:04)
[2018-12-25] MEDS: FLUCONAZOLE 100 MG TABLET (DIFLUCAN) PO SCH (07:58)
[2018-12-25] MEDS: VANCOMYCIN HCL 1,000 MG in NS 250 ML IV SCH (07:59)
--- NOTE | 2018-12-25 08:12 | NUR ---
due medication given. hob elevated. lasix 20 mg iv given.
--- NOTE | 2018-12-25 08:17 | NUR ---
feeding the patient. hob elevated. assists on adls.
[2018-12-25 12:19] VITALS: BP_SYST 108
--- NOTE | 2018-12-25 13:45 | NUR ---
platelet 1 unit given and started at this time. blood consent is on the chart. vitals signs stable.
--- NOTE | 2018-12-25 15:30 | NUR ---
platelet ended at this time. without any reaction. noted.
--- NOTE | 2018-12-25 15:54 | NUR ---
Dietitian Recommendations * Recommend mechanical soft diet w/ Ensure Enlive TID (provides additional 1050 kcal/day and 60 gm of protein/day) * Recommend speech therapist consult to evaluate chewing/swallowing difficulty. * Encourage PO intake. ANNE, RD Please refer to Nutrition Assessment for details. Signed: 12/25/18 at 1555 by Priscila GRACIA <Co-Signature Required> Co-Signed: 12/25/18 at [address] Addendum: 12/25/18 at 1555 by Priscila GRACIA Amended: Links added.
--- NOTE | 2018-12-25 16:00 | NUR ---
watching tv and resting. photos taken at the back post radiation and both buttocks too. wound care treatment done.
[2018-12-25 16:37] VITALS: BP_SYST 139
--- NOTE | 2018-12-25 19:28 | NUR ---
endorsed to incoming nurse Radha RN
--- NOTE | 2018-12-25 19:40 | NUR ---
Initial Notes Received handoff report from offgoing nurse Shirin-RN at the bedside. Patient is resting comfortably in bed, AAOx4. Currently using HHN provided by RT. Breathing even and unlabored. Visible chest rise and fall noted. No SOB, no acute distress, no complaints of pain or facial grimacing noted. Bed is locked, in the lowest position, 2x side rails up, bed alarm is on. Call light is within reach. Encouraged patient to call for assistance. Will continue with plan of care.
[2018-12-25 20:00] VITALS: BP_SYST 121
--- NOTE | 2018-12-25 21:45 | NUR ---
PATIENT ASSISTED ON TO BEDPAN. HAD AN EPISODE OF BM, BROWN AND SOFT. PROVIDED PATIENT WITH WET WASH CLOTH, AND PATIENT PERFORMED SELF PERICARE. NOW RESTING COMFORTABLY IN BED. CALL LIGHT WITHIN REACH. ENCOURAGED PATIENT TO CALL FOR ASSISTANCE.
[2018-12-26 00:08] VITALS: BP_SYST 119
--- NOTE | 2018-12-26 00:30 | NUR ---
PATIENT RESTING COMFORTABLY IN BED, EYES CLOSED. BREATHING EVEN AND UNLABORED, NO SOB, NO ACUTE DISTRESS, NO SIGNS OF PAIN OR FACIAL GRIMACING. CURRENTLY ON 2L O2 AND TOLERATING WELL. BED IS LOCKED, LOWEST POSITION, 2X SIDE RAILS UP, BED ALARM IS ON. CALL LIGHT IS WITHIN REACH.
--- NOTE | 2018-12-26 02:00 | NUR ---
PATIENT resting comfortably in bed, eyes closed. no signs of acute distress. visible chest rise and fall noted. currently on 2L NC O2. bed is locked, lowest position, 2x side rails up, bed alarm is on. call light within reach.
[2018-12-26] MEDS: IPRATROPIUM BROM 0.5 MG/2.5 ML VIAL.NEB (ATROVENT) INH SCH ×4 (03:00→21:31)
[2018-12-26] MEDS: ALBUTEROL SULFATE 0.083% 2.5 MG/3 ML VIAL.NEB INH SCH ×2 (03:00→07:15)
--- NOTE | 2018-12-26 04:04 | NUR ---
Patient resting in bed, eyes closed. breathing even and unlabored. Visible chest rise and fall noted. No changes. Stable.
[2018-12-26 05:45] LABS: ALBUMIN 1.7 g/dL (3.4-4.8); CALCIUM 7.4 mg/dL (8.4-11.0); CREATININE 1.02 mg/dL (0.55-1.30); TOTAL BILIRUBIN 1.2 mg/dL (0.0-1.0)
[2018-12-26 05:53] LABS: POTASSIUM 2.6 mmol/L (3.5-5.1)
[2018-12-26] MEDS: METOCLOPRAMIDE HCL 10 MG/2 ML VIAL IVP SCH ×3 (06:01→22:03)
[2018-12-26] MEDS: HYDROCORTISONE SOD SUCC 100 MG/2 ML VIAL IVP SCH ×3 (06:02→22:03)
[2018-12-26] MEDS: PIPERACILLIN/TAZO 2.25G/DEX-IS 50 ML IV SCH ×3 (06:02→22:02)
[2018-12-26 06:15] VITALS: BP_SYST 123
--- NOTE | 2018-12-26 06:15 | NUR ---
Notified by child monitor that the patient is showing Afib. VS taken and WNL. patient is not complaining of any distress or pain at this time. Posisitve affect. AAOx4. No SOB. will notify
[2018-12-26 06:27] LABS: BASOPHILS % (AUTO) 0.2 % (0.0-2.0); EOSINOPHILS % (AUTO) 0.1 % (0.0-4.0); HEMATOCRIT 25.8 % (36-48); HEMOGLOBIN 8.8 g/dL (12.0-16.0); LYMPHOCYTES # (AUTO) 0.2 K/uL (1.0-5.5); MEAN CORPUSCULAR HEMOGLOBIN 30 pg (27-31); MEAN CORPUSCULAR HGB CONC 34 % (32-36); MEAN CORPUSCULAR VOLUME 88 fL (79.0-98.0); MONOCYTES # (AUTO) 0.1 K/uL (0.0-1.0); NEUTROPHILS # (AUTO) 3.2 K/uL (1.8-7.7); NEUTROPHILS % (AUTO) 89.7 % (40.0-70.0); RED BLOOD CELL COUNT(AUTO) 2.92 MIL/uL (4.2-6.2); RED CELL DISTRIBUTION WIDTH 19.6 % (9.0-15.0); WHITE BLOOD COUNT (AUTO) 3.5 K/uL (4.8-10.8)
--- NOTE | 2018-12-26 06:39 | NUR ---
DR TINAJERO WAS PAGED FOR CRITICAL LAB
[2018-12-26] MEDS ORDERED: KCL 40 mEq in 100 mL (PREMIX) 100 ML IV ONE (06:45)
[2018-12-26] MEDS ORDERED: KCL 20 mEq in 100 mL (PREMIX) 100 ML IV ONE (06:45)
--- NOTE | 2018-12-26 06:53 | NUR ---
Dr Waldron called back. Notified him that the patient has critical lab Potassium 2.6, platelet 32, and new onset AFIB. Dr Waldron ordered 60meq Krider IV stat. Orders noted. Charge nurse aware.
--- NOTE | 2018-12-26 07:20 | NUR ---
sbar report received at the bedside. patient aao x 4. had a breathing treatment noted. patient hob elevated. still has iv access ont he left forearm #22. saline lock. breathing even and unlabored, but has non productive x 1. has oxygen 2lnc. no complained of sob nor pain nor other distress noted. bed low position, alarmed and locked. call lights within reach. continue to monitor patients. status.
[2018-12-26 07:30] LABS: PLATELET COUNT (AUTO) 32 K/uL (130-430)
--- NOTE | 2018-12-26 07:30 | NUR ---
report received at the bedside. patient aaox 4. has oxygen 2lnc. vitals signs stable and afebrile. lungs bilaterally clear abdomen soft and non distended. has port cath at the right chest area. saline lock/dry/intact. has iv access on the left forearm #22. saline lock. abdomen soft and non distended. bed low position, alarmed and locked. call lights within reach. instructed to call for assistance. has esposito catheter in placed draining clear yellow urine. on cardiac catheterization technologist.
[2018-12-26] MEDS ORDERED: POTASSIUM CHLORIDE 60 MEQ in NS 500 ML IV ONE (07:45)
--- NOTE | 2018-12-26 07:45 | NUR ---
patient having atrial fibrillation after breathing treatment of 140 to 170. patient asymptomatic bp 122/70. no chest pain nor pain nor other distress noted. patient verbalized i m okay so far. afebrile.
--- NOTE | 2018-12-26 07:45 | NUR ---
CLOSING NOTES HANDOFF REPORT GIVEN AT THE BEDSIDE. PATIENT RESTING COMFORTABLY IN BED,AAOX4. BREATHING EVEN AND UNLABORED. VISIBLE CHEST RISE AND FALL NOTED. CURRENTLY ON 2LNC AND TOLERATING WELL. NO SOB, NO ACUTE DISTRESS, NO SIGNS OF PAIN OR FACIAL GRIMACING NOTED. BED IS LOCKED, IN THE LOWEST POSITION, 2X SIDE RAILS UP, BED ALARM IS ON. CALL LIGHT IS WITHIN REACH. ENDORSED TO DAYSHIFT NURSE TO NOTIFY DR BEST REGARDING NEW ONSET AFIB.
--- NOTE | 2018-12-26 08:00 | NUR ---
dr cuevas called for heart rate 160 to 170. patient just had breathing treatment. patient asymptomatic bp 106/72. hr 154. no sob nor chest pain noted.
[2018-12-26 08:07] VITALS: BP_SYST 140
[2018-12-26] MEDS: PANTOPRAZOLE SODIUM 40 MG/VIAL (PROTONIX) IVP SCH ×2 (08:15→22:04)
[2018-12-26] MEDS: VANCOMYCIN HCL 1,000 MG in NS 250 ML IV SCH (08:16)
--- NOTE | 2018-12-26 08:20 | NUR ---
k rider 60 meq iv given at this time.
--- NOTE | 2018-12-26 08:21 | NUR ---
other due meds given.
[2018-12-26] MEDS: FLUCONAZOLE 100 MG TABLET (DIFLUCAN) PO SCH (08:46)
--- NOTE | 2018-12-26 08:50 | NUR ---
iv antibiotic given via rt chest neeru cath.
--- NOTE | 2018-12-26 08:51 | NUR ---
paged dr cuevas group still awaiting to call back.
[2018-12-26] MEDS ORDERED: DILTIAZEM HCL 25 MG/5 ML VIAL IVP ONE (09:15)
--- NOTE | 2018-12-26 09:20 | NUR ---
called again dr cuevas and call back spoke to Jessenia studio operations engineer in charge nurse and ordered Cardizem iv to give now. and cardiizem drip too. but patient converted to Sr St 90 to 108. cardizem iv not given at this time. notified
--- NOTE | 2018-12-26 10:50 | NUR ---
Pt experiencing shortness of breath. Continue with O2 2 liters per nasal cannula. HOB at least at 30 degrees. Respiratory status maintained.
--- NOTE | 2018-12-26 12:09 | NUR ---
DR MANRIQUE CAME INFORMED REGARDING PATIENTS STATUS. JUST HOLD CARDIZEM IV FOR NOW. GIVE IF PATIENT GOES TO AFIB AGAIN.
[2018-12-26 12:31] VITALS: BP_SYST 115
[2018-12-26] MEDS: LevALBUTEROL HCL 1.25 MG/0.5 ML *CONC.* VIAL.NEB (XOPENEX CONC.) INH SCH ×2 (13:27→21:31)
--- NOTE | 2018-12-26 16:21 | NUR ---
DUE MEDICATION GIVEN ORDERED.
[2018-12-26 16:45] VITALS: BP_SYST 118
--- NOTE | 2018-12-26 18:00 | NUR ---
eating good. helping her to eat. assists on adls.
--- NOTE | 2018-12-26 19:25 | NUR ---
endorsed to incoming nurse Celso MCKEON
[2018-12-26 20:51] VITALS: BP_SYST 141
[2018-12-27 01:27] VITALS: BP_SYST 119
[2018-12-27] MEDS: LevALBUTEROL HCL 1.25 MG/0.5 ML *CONC.* VIAL.NEB (XOPENEX CONC.) INH SCH ×3 (02:02→20:44)
[2018-12-27] MEDS: IPRATROPIUM BROM 0.5 MG/2.5 ML VIAL.NEB (ATROVENT) INH SCH ×3 (02:02→20:44)
[2018-12-27 04:00] VITALS: BP_SYST 132
--- NOTE | 2018-12-27 04:00 | NUR ---
PT remain stable . no compain of pain . pt will monitor .
[2018-12-27] MEDS: METOCLOPRAMIDE HCL 10 MG/2 ML VIAL IVP SCH ×3 (07:13→23:04)
[2018-12-27] MEDS: HYDROCORTISONE SOD SUCC 100 MG/2 ML VIAL IVP SCH (07:14)
[2018-12-27] MEDS: PIPERACILLIN/TAZO 2.25G/DEX-IS 50 ML IV SCH (07:14)
[2018-12-27 08:00] VITALS: BP_SYST 109
[2018-12-27] MEDS: VANCOMYCIN HCL 1,000 MG in NS 250 ML IV SCH (10:17)
[2018-12-27] MEDS: PANTOPRAZOLE SODIUM 40 MG TAB PO SCH (10:18)
[2018-12-27] MEDS: FLUCONAZOLE 100 MG TABLET (DIFLUCAN) PO SCH (10:18)
[2018-12-27 11:32] LABS: CALCIUM 7.5 mg/dL (8.4-11.0); CHLORIDE 110 mmol/L (98-107); CREATININE 0.96 mg/dL (0.55-1.30); GLUCOSE 105 mg/dL (70-99); POTASSIUM 2.5 mmol/L (3.5-5.1); SODIUM SERUM 139 mmol/L (136-145); UREA NITROGEN, BLOOD 23 mg/dL (8-21)
[2018-12-27 11:41] LABS: ANION GAP < 3 (5-15); GFR AFRICAN AMERICAN 74 mL/min (>90)
--- NOTE | 2018-12-27 11:46 | NUR ---
PAGED I PAGED DR. TINAJERO I SPOKE WITH MELODY WILKES REASON: CRITICAL LABS RESULTS
[2018-12-27 12:24] VITALS: BP_SYST 121
[2018-12-27] MEDS ORDERED: POTASSIUM CHLORIDE 60 MEQ in NS 500 ML IV SCH (13:27)
[2018-12-27] MEDS ORDERED: POTASSIUM CHLORIDE 20 MEQ TAB.PRT.SR PO ONE (14:30)
[2018-12-27] MEDS ORDERED: POTASSIUM CHLORIDE 40 MEQ in 0.45% NS 250 ML IV ONE (14:30)
[2018-12-27 16:55] VITALS: BP_SYST 117
[2018-12-27 20:38] VITALS: BP_SYST 112
--- NOTE | 2018-12-27 22:00 | NUR ---
PT ELERT BREATHING WITH NO DIFICULTY . VITAL SIGN STABLE . WILL CONTINUE TO MONITOR PT .
[2018-12-28] VITALS (17 sets, daily range): BP systolic 105–163
--- NOTE | 2018-12-28 01:00 | NUR ---
PT ON BREATH TREATMENT . TOLERATING WELL .PT FOR LABS IN THE MORNING .
[2018-12-28] MEDS: LevALBUTEROL HCL 1.25 MG/0.5 ML *CONC.* VIAL.NEB (XOPENEX CONC.) INH SCH ×4 (01:08→19:50)
[2018-12-28] MEDS: IPRATROPIUM BROM 0.5 MG/2.5 ML VIAL.NEB (ATROVENT) INH SCH ×4 (01:08→19:50)
[2018-12-28] MEDS: ALBUTEROL SULFATE 0.083% 2.5 MG/3 ML VIAL.NEB INH PRN (03:08)
--- NOTE | 2018-12-28 05:30 | NUR ---
PT TO OFF OXYGEN AGAIN . RESPITORY GAVE PT TREATMENT . VITAL SIGN 128/76.PULMONOLOTIES . PT SEEN BY MD Paulo DOMINGO .
--- NOTE | 2018-12-28 05:43 | NUR ---
PAGED PAGED THE PUBLIC HEALTH DIETITIAN PHYSICIAN DR. ARANGO, SPOKE WITH REGGIE
--- NOTE | 2018-12-28 06:15 | NUR ---
LASIX 20 MG IV GIVEN 124/76 .100 PERCENT NON REBREATHER MASK CONTINUE O2 SAT 95%.
[2018-12-28] MEDS ORDERED: FUROSEMIDE 20 MG/2 ML VIAL IVP SCH (06:45)
[2018-12-28] MEDS: METOCLOPRAMIDE HCL 10 MG/2 ML VIAL IVP SCH ×3 (06:59→21:12)
[2018-12-28] MEDS ORDERED: POTASSIUM CHLORIDE 20 MEQ TAB.PRT.SR PO PRN (07:15)
--- NOTE | 2018-12-28 07:30 | NUR ---
PT BREATHING WITH NO DIFICULTY. PT 100% NRM. REPORT PASSED ON TO THE DAY SHIFT . WILL CONTINUE TO NONITO PT .
--- NOTE | 2018-12-28 07:45 | NUR ---
Opening Note Short bedside report received from Zeinab MCKEON. Pt was noted to be lethargic and tachypenic at 40. Noc shift RN stated that she became like this at approx 0500,however, is unsure. Lasix 20mg IVP was given at approx 0600. pt is currently on a 100% non rebreather. Will continue to monitor.
[2018-12-28 07:53] LABS: BASOPHILS % (AUTO) 0.2 % (0.0-2.0); EOSINOPHILS # (AUTO) 0.1 K/uL (0.0-0.4); EOSINOPHILS % (AUTO) 1.1 % (0.0-4.0); HEMATOCRIT 28.8 % (36-48); HEMOGLOBIN 9.6 g/dL (12.0-16.0); LYMPHOCYTES # (AUTO) 0.7 K/uL (1.0-5.5); LYMPHOCYTES % (AUTO) 11.1 % (20.5-51.5); MEAN CORPUSCULAR HEMOGLOBIN 30 pg (27-31); MEAN CORPUSCULAR HGB CONC 33 % (32-36); MEAN CORPUSCULAR VOLUME 92 fL (79.0-98.0); MONOCYTES # (AUTO) 0.2 K/uL (0.0-1.0); MONOCYTES % (AUTO) 2.7 % (1.7-9.3); NEUTROPHILS # (AUTO) 5.6 K/uL (1.8-7.7); NEUTROPHILS % (AUTO) 84.9 % (40.0-70.0); RED BLOOD CELL COUNT(AUTO) 3.15 MIL/uL (4.2-6.2); RED CELL DISTRIBUTION WIDTH 19.5 % (9.0-15.0); WHITE BLOOD COUNT (AUTO) 6.6 K/uL (4.8-10.8)
--- NOTE | 2018-12-28 08:00 | NUR ---
MD called Called Dr. Alvarez to make MD aware of change in pt status. Waiting for a call back
--- NOTE | 2018-12-28 08:03 | NUR ---
PAGED FRESH WORK WRAPPER LAYER
[2018-12-28 08:15] LABS: PLATELET COUNT (AUTO) 18 K/uL (130-430)
--- NOTE | 2018-12-28 08:15 | NUR ---
Spoke w/ Spoke w/ Dr. Alvarez. Made MD aware that the pt is on a 100% non-rebreather. MD does not want to transfer to ICU. O2 sat is 94%.
[2018-12-28 08:17] LABS: CALCIUM 7.7 mg/dL (8.4-11.0); CREATININE 0.83 mg/dL (0.55-1.30)
[2018-12-28] MEDS: IPRATROPIUM BROM 0.5 MG/2.5 ML VIAL.NEB (ATROVENT) INH PRN (08:18)
[2018-12-28 08:20] LABS: ALBUMIN 1.8 g/dL (3.4-4.8); TOTAL BILIRUBIN 0.8 mg/dL (0.0-1.0)
--- NOTE | 2018-12-28 08:21 | NUR ---
PT TOOK OF OXYGEN . O2 PLACED BACK ON . PT BREATHING WITH RALES RESPITORY THERAPIST GAVE TO PT . WILL CONTINUE TO MONITOR PT .T
[2018-12-28] MEDS: FLUCONAZOLE 100 MG TABLET (DIFLUCAN) PO SCH (08:31)
[2018-12-28] MEDS: PANTOPRAZOLE SODIUM 40 MG TAB PO SCH (08:31)
--- NOTE | 2018-12-28 08:54 | NUR ---
paged Dr Bal spoke with Pattie from dr.Reddy carballo.Dr Bal is front end loader driver for Dr Waldron
--- NOTE | 2018-12-28 09:15 | NUR ---
Spoke w/ Spoke w/ Dr. Bal. Order for transfer to ICU received. Pt is still on a non-rebreather O2 sat is 94%
[2018-12-28] MEDS ORDERED: FUROSEMIDE 40 MG/4 ML VIAL IVP ONE (09:30)
--- NOTE | 2018-12-28 09:50 | NUR ---
pt will be transferred to ICU bed 3.
[2018-12-28] MEDS ORDERED: MAGNESIUM SULFATE 1 GM/2 ML VIAL IVP ONE (10:15)
--- NOTE | 2018-12-28 10:20 | NUR ---
0818 PT WAS ON NON REBREATHER BUT LETHARGIC, MIKE QUARLES AWARE AND CONTACTING DR. ANDREA ENCARNACION PT AND GAVE BREATHING TREATMENT. AROUND 10:20 PT WAS MOVED TO ICU3 Addendum: 12/28/18 at 1222 by Tonja Patrick RT Amended: Links added.
--- NOTE | 2018-12-28 10:35 | NUR ---
Transfer to ICU/[place] of Care Received report from MST RN. Pt on 100% NRB mask, able to follow commands. States no pain at this time.
--- NOTE | 2018-12-28 10:36 | NUR ---
Dr. Giraldo present at bedside. Pt opened eyes to name and able to respond. Oriented x4, pt unable to speak loudly.
--- NOTE | 2018-12-28 10:41 | NUR ---
tranferred pt to ICU 3. Bedside report given to Sridevi MCKEON. Transported pt w/ monitoring manager. Iv is on the left hand 22g, patent and infusing well. Left chest port-a-cath patent and flushing well.
[2018-12-28] MEDS ORDERED: MAGNESIUM SULFATE/D5W 100 ML IV ONE (10:45)
--- NOTE | 2018-12-28 15:20 | NUR ---
Received patient and report. Patient in no acute distress.
--- NOTE | 2018-12-28 15:25 | NUR ---
Transfer of Care Report given to Soheila MCKEON. Pt states no pain or distress at this time. Remains on 100% NRB.
--- NOTE | 2018-12-28 17:13 | NUR ---
P.T. NOTES HOLD P.T. SERVICES, TRANSFERRED TO ICU, WILL AWAIT P.T. RE EVAL ORDER WHEN APPROPRIATE.
--- NOTE | 2018-12-28 17:20 | NUR ---
Nutrition Follow Up RD reviewed pt's current EMR including diet Hx, physician notes, nursing notes, pertinent labs/m,eds/procedures, care trends and care activity. Current diet order: Mechanical Soft x 3 days PO intake 50% average x 8 meals Subjective Information: Pt admitted with Lung Ca, HTN, COPD, chemotherapy and radiation therapy per physician notes. Per physician notes, hypotension, hyponatremia, septic shock, and acidosis is improving. Pt appeared weak upon RD interview, was not able to communicate well. RN at bedside. Pt not seen by ST deidra. Lunch tray consumed at 10%, only strawberries eaten. Pt nodded yes when RD asked about liking Ensure supplements, nodded yes when asked about consumption with meals. RD encouraged PO intake as tolerated. Estimated Energy Expenditure (kcals/day) 5838-8931 kcal/day (30-35 kcal/kg CBW for CA, sepsis) Estimated Protein Required (g/day) 83-110 gm/day (1.5-2 gm/kg CBW for CA, sepsis) Estimated Fluid Required (l/day) 1.6-1.9 L/day (30-35 mL/kg CBW for dehydration) Problem/Etiology/Signs/Symptoms Suboptimal PO intake related to catabolic demands and radiation/chemotherapy treatments as evidenced by estimated nutritional needs for CA, sepsis, 28% average PO intake x7 meals, and 10% unintentional wt loss in 3 months. *ongoing* Expected Outcomes/Goals - Monitor appetite and PO intake w/ goal of pt meeting at least 65% of estimated nutritional needs, labs trending WNL, normal GI function, and skin integrity/wt maintenance. Dietitian Recommendations * Continue mechanical soft diet w/ Ensure Enlive TID (provides additional 1050 kcal/day and 60 gm of protein/day) * Encourage PO intake. Follow Up High Risk: F/U in 2-3days LT, RD
--- NOTE | 2018-12-28 17:27 | NUR ---
Dietitian Recommendations * Continue mechanical soft diet w/ Ensure Enlive TID (provides additional 1050 kcal/day and 60 gm of protein/day) * Encourage PO intake. Please see Nutrition Follow Up for details. LT, RD
--- NOTE | 2018-12-28 20:00 | NUR ---
PATIENT AWAKE ALERT HOB ELEVATED is Verbally indicative on NON - Rebreather Mask 02 SAT 96 % Chest movement symmetrical comfort measures implemented Family member @ the bedside assist as needed .
--- NOTE | 2018-12-28 20:24 | NUR ---
Patient put on OXIMIZER @ 6 Liters per MINUTE NON - REBREATHER MASK D/C @ This time 02 SAT 97 %
--- NOTE | 2018-12-28 22:10 | NUR ---
Reglan 5 MG IVP ADMINISTER ORDERED FOR GI UPSET & Helpful , family @ the bedside .
--- NOTE | 2018-12-28 22:11 | NUR ---
Reposition & Turning off loading with pillows comfort measures implemented patient alert position change on schedule tolerated .
--- NOTE | 2018-12-28 22:36 | NUR ---
REFUSE , PATIENT REFUSE FLU VACCINE @ THE BEDSIDE .
[2018-12-29] VITALS (25 sets, daily range): BP systolic 93–118
[2018-12-29] MEDS: IPRATROPIUM BROM 0.5 MG/2.5 ML VIAL.NEB (ATROVENT) INH SCH ×4 (00:40→19:40)
[2018-12-29] MEDS: LevALBUTEROL HCL 1.25 MG/0.5 ML *CONC.* VIAL.NEB (XOPENEX CONC.) INH SCH ×4 (00:40→19:39)
--- NOTE | 2018-12-29 01:30 | NUR ---
Patient Resting sleeping HOB elevated 02 SAT 100 % on OXIMIZER , @ the bedside .
[2018-12-29 06:03] LABS: BASOPHILS % (AUTO) 0.1 % (0.0-2.0); EOSINOPHILS % (AUTO) 1.9 % (0.0-4.0); HEMATOCRIT 22.4 % (36-48); HEMOGLOBIN 7.6 g/dL (12.0-16.0); LYMPHOCYTES # (AUTO) 0.2 K/uL (1.0-5.5); LYMPHOCYTES % (AUTO) 9.3 % (20.5-51.5); MEAN CORPUSCULAR HEMOGLOBIN 31 pg (27-31); MEAN CORPUSCULAR HGB CONC 34 % (32-36); MEAN CORPUSCULAR VOLUME 90 fL (79.0-98.0); MONOCYTES # (AUTO) 0.1 K/uL (0.0-1.0); NEUTROPHILS # (AUTO) 1.7 K/uL (1.8-7.7); NEUTROPHILS % (AUTO) 85.7 % (40.0-70.0); RED CELL DISTRIBUTION WIDTH 18.9 % (9.0-15.0)
--- NOTE | 2018-12-29 06:44 | NUR ---
Patient awake on and off HOB elevated on OXIMIZER 02 SAT 98 % chest movement symmetrical also unlabored .
[2018-12-29] MEDS: METOCLOPRAMIDE HCL 10 MG/2 ML VIAL IVP SCH ×3 (06:52→21:07)
[2018-12-29 06:58] LABS: PLATELET COUNT (AUTO) 9 K/uL (130-430)
[2018-12-29 07:00] LABS: ALBUMIN 1.8 g/dL (3.4-4.8); CALCIUM 8.3 mg/dL (8.4-11.0); CREATININE 0.78 mg/dL (0.55-1.30); POTASSIUM 3.2 mmol/L (3.5-5.1)
--- NOTE | 2018-12-29 07:00 | NUR ---
pt received at this time.alert and awake;respirations unlabored.no dyspnea noted.
--- NOTE | 2018-12-29 07:03 | NUR ---
PHONED Paged DR TANVI SAMUELS PLTs 9 abnormal lab .
[2018-12-29] MEDS: ALBUTEROL SULFATE 0.083% 2.5 MG/3 ML VIAL.NEB INH PRN (07:28)
[2018-12-29] MEDS ORDERED: POTASSIUM CHLORIDE 20 MEQ TAB.PRT.SR PO ONE ×2 (08:30→08:45)
[2018-12-29] MEDS: PANTOPRAZOLE SODIUM 40 MG TAB PO SCH (08:36)
[2018-12-29] MEDS: FLUCONAZOLE 100 MG TABLET (DIFLUCAN) PO SCH (08:36)
[2018-12-29] MEDS ORDERED: FUROSEMIDE 20 MG/2 ML VIAL IVP ONE (08:45)
--- NOTE | 2018-12-29 10:00 | NUR ---
pt platelets and h/h low.to receive platelets and prbcs transfusion.
--- NOTE | 2018-12-29 10:26 | NUR ---
Paged Dr. Bal for clarification of orders. Spoke with exchange.
--- NOTE | 2018-12-29 13:00 | NUR ---
pt assisted as needed.no c/o given.
--- NOTE | 2018-12-29 16:10 | NUR ---
pt platelets transfusion begins.vss.no c/o any discomfort.
--- NOTE | 2018-12-29 16:55 | NUR ---
platelets transfusion ends.no reaction noted.
--- NOTE | 2018-12-29 17:20 | NUR ---
prbcs transfusion begins;vss.no distress noted.
--- NOTE | 2018-12-29 17:35 | NUR ---
prbcs transfusion in progress.no reaction noted.
--- NOTE | 2018-12-29 20:02 | NUR ---
BLOOD TRANSFUSION PRBC COMPLETE , PATIENT AWAKE ALERT NO ADVERSE REACTION NOTED / .
--- NOTE | 2018-12-29 21:33 | NUR ---
patient awake alert OXIMIZER 6 LITERS MINUTE 02 SAT 99 % kept upright position chest movement symmetrical no use of accessory muscles skin dry warm .
--- NOTE | 2018-12-29 21:35 | NUR ---
Reglan 5 MG IVP administer for GI upset & Helpful patient Resting comfort measures implemented .
[2018-12-30] VITALS (25 sets, daily range): BP systolic 105–133
[2018-12-30] MEDS: IPRATROPIUM BROM 0.5 MG/2.5 ML VIAL.NEB (ATROVENT) INH SCH ×4 (00:57→19:30)
[2018-12-30] MEDS: LevALBUTEROL HCL 1.25 MG/0.5 ML *CONC.* VIAL.NEB (XOPENEX CONC.) INH SCH ×4 (00:57→19:29)
--- NOTE | 2018-12-30 01:18 | NUR ---
OXIMIZER 6 LITERS PER MINUTE 02 SAT 96 % skin dry warm assist as needed .
[2018-12-30] MEDS: METOCLOPRAMIDE HCL 10 MG/2 ML VIAL IVP SCH ×3 (06:37→21:07)
[2018-12-30 06:49] LABS: BASOPHILS % (AUTO) 0.4 % (0.0-2.0); EOSINOPHILS % (AUTO) 1.3 % (0.0-4.0); HEMATOCRIT 25.6 % (36-48); HEMOGLOBIN 8.7 g/dL (12.0-16.0); LYMPHOCYTES # (AUTO) 0.2 K/uL (1.0-5.5); LYMPHOCYTES % (AUTO) 11.8 % (20.5-51.5); MEAN CORPUSCULAR HEMOGLOBIN 30 pg (27-31); MEAN CORPUSCULAR HGB CONC 34 % (32-36); MEAN CORPUSCULAR VOLUME 89 fL (79.0-98.0); MONOCYTES # (AUTO) 0.1 K/uL (0.0-1.0); MONOCYTES % (AUTO) 3.4 % (1.7-9.3); NEUTROPHILS # (AUTO) 1.3 K/uL (1.8-7.7); NEUTROPHILS % (AUTO) 83.1 % (40.0-70.0); RED BLOOD CELL COUNT(AUTO) 2.87 MIL/uL (4.2-6.2); RED CELL DISTRIBUTION WIDTH 16.4 % (9.0-15.0)
[2018-12-30 06:54] LABS: PLATELET COUNT (AUTO) 37 K/uL (130-430); WHITE BLOOD COUNT (AUTO) 1.6 K/uL (4.8-10.8)
[2018-12-30 07:04] LABS: ALBUMIN 1.8 g/dL (3.4-4.8); CALCIUM 7.8 mg/dL (8.4-11.0); CREATININE 0.81 mg/dL (0.55-1.30); POTASSIUM 3.2 mmol/L (3.5-5.1); TOTAL BILIRUBIN 1.3 mg/dL (0.0-1.0)
[2018-12-30 08:31] LABS: THYROID STIMULATING HORMONE 1.48 uIu/mL (0.36-3.74)
[2018-12-30] MEDS: FLUCONAZOLE 100 MG TABLET (DIFLUCAN) PO SCH (08:38)
[2018-12-30] MEDS: PANTOPRAZOLE SODIUM 40 MG TAB PO SCH (08:38)
[2018-12-30] MEDS ORDERED: POTASSIUM CHLORIDE 40 MEQ, LIDOCAINE JECT 2% PF 100 MG 75 MG in NS 250 ML IV ONE ×2 (09:00→10:00)
[2018-12-30] MEDS: methylPREDNISolone SOD SUCC 40 MG/ML VIAL IVP SCH ×2 (09:12→21:07)
--- NOTE | 2018-12-30 19:40 | NUR ---
Opening Note Pt in bed, AAO. SR/ST on the monitor. Pt has 6L oximizer on. NO s/s of distress noted. Pt has L hand 22g, SL and Rt chest Port-a-cath. NO s/s of infiltration noted. Pt has esposito draining urine to gravity. Skin intact, dressings are in place. C/D/I. Pt being turned Q2H. NO c/o of pain at this time. Bed locked in lowest position, call light in reach, and safety precautions in place. Will continue to monitor.
--- NOTE | 2018-12-30 23:20 | NUR ---
RN Rounds Pt in bed asleep. No s/s of distress noted. Pt 6L oximizer on, Pt saturating in the mid-high 90s. VSS. Will continue to monitor.
[2018-12-31] VITALS (24 sets, daily range): BP systolic 100–163
[2018-12-31] MEDS: LevALBUTEROL HCL 1.25 MG/0.5 ML *CONC.* VIAL.NEB (XOPENEX CONC.) INH SCH ×4 (01:00→19:57)
[2018-12-31] MEDS: IPRATROPIUM BROM 0.5 MG/2.5 ML VIAL.NEB (ATROVENT) INH SCH ×4 (01:00→19:57)
--- NOTE | 2018-12-31 03:31 | NUR ---
RN Rounds Pt in bed asleep. No s/s of acute distress noted. VSS. IV site remains C/D/I. Will continue to monitor.
[2018-12-31] MEDS: METOCLOPRAMIDE HCL 10 MG/2 ML VIAL IVP SCH ×3 (05:05→21:41)
--- NOTE | 2018-12-31 05:43 | NUR ---
RN Rounds Pt in bed, AAO. No s/s of distress noted. Pt cleaned and linens changed after pt had BM. Tolerated well. VSS. Will continue to monitor.
[2018-12-31 06:06] LABS: FOLATE (FOLIC ACID) 3.6 ng/mL (>3.0)
[2018-12-31 06:17] LABS: BASOPHILS % (AUTO) 0.3 % (0.0-2.0); EOSINOPHILS % (AUTO) 0.2 % (0.0-4.0); HEMATOCRIT 24.7 % (36-48); HEMOGLOBIN 8.4 g/dL (12.0-16.0); LYMPHOCYTES # (AUTO) 0.2 K/uL (1.0-5.5); LYMPHOCYTES % (AUTO) 14.9 % (20.5-51.5); MEAN CORPUSCULAR HEMOGLOBIN 31 pg (27-31); MEAN CORPUSCULAR HGB CONC 34 % (32-36); MEAN CORPUSCULAR VOLUME 90 fL (79.0-98.0); MONOCYTES # (AUTO) 0.1 K/uL (0.0-1.0); MONOCYTES % (AUTO) 4.8 % (1.7-9.3); NEUTROPHILS % (AUTO) 79.8 % (40.0-70.0); RED BLOOD CELL COUNT(AUTO) 2.74 MIL/uL (4.2-6.2); RED CELL DISTRIBUTION WIDTH 16.6 % (9.0-15.0)
--- NOTE | 2018-12-31 06:47 | NUR ---
Closing Note Pt in bed AAO. SR on the monitor. 6L Oximizer, no s/s of distress noted. VSS. IV site C/D/I. Salas catheter draining urine to gravity. Skin intact. Pt denies any pain. Bed locked in lowest position, call light in reach, and safety precautions in place. Will endorse to oncoming RN.
[2018-12-31 06:48] LABS: CALCIUM 8.1 mg/dL (8.4-11.0); CREATININE 0.78 mg/dL (0.55-1.30); POTASSIUM 4.1 mmol/L (3.5-5.1)
--- NOTE | 2018-12-31 07:06 | NUR ---
Endorsement Report given to oncoming RN at bedside via SBAR approach.
[2018-12-31 07:24] LABS: WHITE BLOOD COUNT (AUTO) 1.3 K/uL (4.8-10.8)
[2018-12-31 08:31] LABS: PLATELET COUNT (AUTO) 28 K/uL (130-430)
[2018-12-31] MEDS: PANTOPRAZOLE SODIUM 40 MG TAB PO SCH (09:11)
[2018-12-31] MEDS: FLUCONAZOLE 100 MG TABLET (DIFLUCAN) PO SCH (09:11)
[2018-12-31] MEDS: methylPREDNISolone SOD SUCC 40 MG/ML VIAL IVP SCH ×2 (09:11→21:41)
[2018-12-31] MEDS: FOLIC ACID 1 MG TABLET PO SCH (09:11)
[2018-12-31] MEDS: CYANOCOBALAMIN 1000 mCg TABLET PO SCH (09:22)
--- NOTE | 2018-12-31 09:32 | NUR ---
Assumed care of pt. Pt currently eating breakfast, states no distress or pain at this time.
--- NOTE | 2018-12-31 13:28 | NUR ---
PHYSICAL THERAPY CO-SIGN The Physical Therapy Progress Notes documented by Medical Consultant have been reviewed. Reviewed/Co-Signed by: Bora Clarke PT Documentation Done by: JOB SINGER PTA Addendum: 12/31/18 at 1329 by Bora Clarke PT Amended: Links added.
--- NOTE | 2018-12-31 15:16 | NUR ---
Nutrition F/U RD reviewed pt's current EMR including diet Hx, physician notes, nursing notes, pertinent labs/m,eds/procedures, care trends, and care activity. Admitting Dx: GI bleed PMH: Lung CA, HTN, COPD, chemotherapy, and radiation therapy per physician's notes. Since admission, pt also found w/: SHARON, anemia, sepsis, atrial fibrillation, bilateral pneumonia, dehydration, and acidosis per physician's notes. Current diet order: Mechanical soft, Ensure Enlive TID x5 days PO intakes: 63% average x2 meals Subjective Information: Pt was seen resting in bed w/ lunch tray less than 25% eaten at bedside. Pt reported that overall, she has been eating better. RD encouraged pt to continue to eat what she can, and drink Ensure Enlive ONS for optimal nutrition. Bedscale wt taken: 140# -- likely inaccurate d/t linens. Pt reported UBW: 122#. PO intake records have improved since last RD visit. Estimated Energy Expenditure (kcals/day) 2921-9160 kcal/day (30-35 kcal/kg CBW for CA, sepsis) Estimated Protein Required (g/day) 83-110 gm/day (1.5-2 gm/kg CBW for CA, sepsis) Estimated Fluid Required (l/day) 1.6-1.9 L/day (30-35 mL/kg CBW for dehydration) Problem/Etiology/Signs/Symptoms (MODIFIED) Suboptimal PO intake related to catabolic demands and radiation/chemotherapy treatments as evidenced by estimated nutritional needs for CA, sepsis, 63% average PO intake x7 meals, and 10% unintentional wt loss in 3 months. *ongoing Expected Outcomes/Goals - Monitor appetite and PO intake w/ goal of pt meeting at least 65% of estimated nutritional needs, labs trending WNL, normal GI function, and skin integrity/wt maintenance. Dietitian Recommendations * Recommend continuing mechanical soft diet w/ Ensure Enlive TID (provides additional 1050 kcal/day and 60 gm of protein/day) * Encourage PO intake Follow Up Moderate Risk: F/U in 3-5 days Addendum: 12/31/18 at [address] Pt also reported that she is happy w/ chocolate-flavored Ensure Enlive ONS.
--- NOTE | 2018-12-31 15:22 | NUR ---
Dietitian Recommendations * Recommend continuing mechanical soft diet w/ Ensure Enlive TID (provides additional 1050 kcal/day and 60 gm of protein/day) * Encourage PO intake LP, RD Please refer to Nutrition F/U for details.
[2018-12-31] MEDS: TBO-FILGRASTIM 300 MCG/0.5 ML SYRINGE SUBCUT SCH (16:52)
--- NOTE | 2018-12-31 19:15 | NUR ---
PM SHIFT ASSESSMENT Pt is A/O X4. O2 via oxymizer at 6L, RR even and unlabored. SR noted on monitor. Skin warm and intact. Salas catheter in place and draining to gravity. IV22G to LFA S/L. Safety precautions in place, call light within reach. Will continue to monitor.
--- NOTE | 2018-12-31 19:15 | NUR ---
Endorsed plan of care to oncoming RN via SBAR.
--- NOTE | 2018-12-31 22:00 | NUR ---
CENTRAL LINE DRESSING CHANGE Port-a-cath to right upper chest dressing changed with sterile technique. Site is C/D/I. Pt tolerated care well.
--- NOTE | 2018-12-31 22:20 | NUR ---
IV PLACEMENT: # 22 gauge angiocath placed to RFA. Use of asceptic technique. Opsite placed over site. Blood return noted. Flushed with cc of normal saline. No evidence of infiltration noted. Patient tolerated well.
[2019-01-01] VITALS (20 sets, daily range): BP systolic 86–136
[2019-01-01] MEDS: IPRATROPIUM BROM 0.5 MG/2.5 ML VIAL.NEB (ATROVENT) INH SCH ×3 (01:02→13:39)
[2019-01-01] MEDS: LevALBUTEROL HCL 1.25 MG/0.5 ML *CONC.* VIAL.NEB (XOPENEX CONC.) INH SCH ×3 (01:02→13:39)
[2019-01-01 05:51] LABS: HEMATOCRIT 25.2 % (36-48); HEMOGLOBIN 8.5 g/dL (12.0-16.0); MEAN CORPUSCULAR HEMOGLOBIN 31 pg (27-31); MEAN CORPUSCULAR HGB CONC 34 % (32-36); MEAN CORPUSCULAR VOLUME 91 fL (79.0-98.0); RED BLOOD CELL COUNT(AUTO) 2.76 MIL/uL (4.2-6.2); RED CELL DISTRIBUTION WIDTH 16.6 % (9.0-15.0); WHITE BLOOD COUNT (AUTO) 2.1 K/uL (4.8-10.8)
[2019-01-01 05:52] LABS: LYMPHOCYTES % (AUTO) 6.9 % (20.5-51.5); MONOCYTES % (AUTO) 3.9 % (1.7-9.3); PLATELET COUNT (AUTO) 26 K/uL (130-430)
[2019-01-01 05:53] LABS: BASOPHILS % (AUTO) 0.2 % (0.0-2.0); LYMPHOCYTES # (AUTO) 0.1 K/uL (1.0-5.5); MONOCYTES # (AUTO) 0.1 K/uL (0.0-1.0); NEUTROPHILS # (AUTO) 1.8 K/uL (1.8-7.7)
[2019-01-01 06:03] LABS: POTASSIUM 3.9 mmol/L (3.5-5.1)
[2019-01-01 06:04] LABS: ALBUMIN 1.7 g/dL (3.4-4.8); CALCIUM 7.9 mg/dL (8.4-11.0); CREATININE 0.88 mg/dL (0.55-1.30); TOTAL BILIRUBIN 0.6 mg/dL (0.0-1.0)
[2019-01-01] MEDS: METOCLOPRAMIDE HCL 10 MG/2 ML VIAL IVP SCH ×2 (06:17→14:39)
--- NOTE | 2019-01-01 07:16 | NUR ---
ENDORSEMENT Pt care endorsed to dayshift RN using nursing SBAR.
--- NOTE | 2019-01-01 07:30 | NUR ---
Received patient report via SBAR from MIKE Silva.
[2019-01-01] MEDS ORDERED: FLUCONAZOLE 100 MG TABLET (DIFLUCAN) PO SCH (09:00)
[2019-01-01] MEDS: PANTOPRAZOLE SODIUM 40 MG TAB PO SCH (09:13)
[2019-01-01] MEDS: methylPREDNISolone SOD SUCC 40 MG/ML VIAL IVP SCH (09:13)
[2019-01-01] MEDS: CYANOCOBALAMIN 1000 mCg TABLET PO SCH (09:13)
[2019-01-01] MEDS: FOLIC ACID 1 MG TABLET PO SCH (09:13)
[2019-01-01] MEDS ORDERED: ACETAMINOPHEN 325 MG TABLET PO PRN (09:15)
[2019-01-01] MEDS ORDERED: PROMETHAZINE HCL/CODEINE 6.25-10 mg/5 mL UDC PO PRN (09:15)
[2019-01-01] MEDS ORDERED: CEFEPIME 1 GM in D5W 50 ML IV SCH (10:00)
--- NOTE | 2019-01-01 10:30 | NUR ---
Pt reduced to 4L O2 via oxymizer. Pt tolerating well. O2 sat 98%
[2019-01-01] MEDS: TBO-FILGRASTIM 300 MCG/0.5 ML SYRINGE SUBCUT SCH (16:39)
--- NOTE | 2019-01-01 19:05 | NUR ---
Transfer/Discharge Patient and patient's informed and agree with transfer, signed consent. Patient will be going to [facility] to room 315 C. Report given to Adia MCKEON at [phone] and will be under care of Dr. Piper. All belongings sent home with family. IV site 22G on RFA and portacath on R subclavian locked. Patient also on neutropenic precautions. Medic 1 ALS for transport present and report given to box sealing machine catcher.
== END 2019-01-01 19:11 | DRG 871 ==
LOC: SED 12:26 → SIC 15:26 → STU 12-24 14:49 → SMU 12-27 23:32 → SIC 12-28 10:29
PROVIDERS: ADMIT Internal Medicine Hospice and Palliative Medicine; ATTEND Internal Medicine Hospice and Palliative Medicine
PROC: 30233N1 Transfusion of Nonautologous Red Blood Cells into Peripheral Vein, Percutaneous Approach (ICD-10-PCS; 2018-12-20)
PROC: 30233R1 Transfusion of Nonautologous Platelets into Peripheral Vein, Percutaneous Approach (ICD-10-PCS; principal; 2018-12-22)
DX: A41.9 Sepsis, unspecified organism (principal); J18.9 Pneumonia, unspecified organism; R40.20 Unspecified coma; R65.21 Severe sepsis with septic shock; I50.33 Acute on chronic diastolic (congestive) heart failure; J96.01 Acute respiratory failure with hypoxia; D61.810 Antineoplastic chemotherapy induced pancytopenia; N17.9 Acute kidney failure, unspecified; E87.1 Hypo-osmolality and hyponatremia; C34.90 Malignant neoplasm of unspecified part of unspecified bronchus or lung; D61.818 Other pancytopenia; B37.0 Candidal stomatitis; E46 Unspecified protein-calorie malnutrition; J44.0 Chronic obstructive pulmonary disease with (acute) lower respiratory infection; J91.8 Pleural effusion in other conditions classified elsewhere; J44.1 Chronic obstructive pulmonary disease with (acute) exacerbation; R65.20 Severe sepsis without septic shock; E86.0 Dehydration; D64.81 Anemia due to antineoplastic chemotherapy; E87.6 Hypokalemia; F17.210 Nicotine dependence, cigarettes, uncomplicated; I11.0 Hypertensive heart disease with heart failure; I48.91 Unspecified atrial fibrillation; R13.10 Dysphagia, unspecified; T45.1X5A Adverse effect of antineoplastic and immunosuppressive drugs, initial encounter; Z66 Do not resuscitate; D69.59 Other secondary thrombocytopenia; Z85.118 Personal history of other malignant neoplasm of bronchus and lung; Z92.3 Personal history of irradiation; Z68.20 Body mass index [BMI] 20.0-20.9, adult; Z79.899 Other long term (current) drug therapy; Z92.21 Personal history of antineoplastic chemotherapy
CPT/HCPCS: 36415; 71045; 80048; 80053; 80202-TC; 81000-TC; 82272; 82607; 82746; 83605; 83615-TC; 83735-TC; 83880; 84443-TC; 84484; 85007; 85018-TC; 85025; 85027; 85044-TC; 85610-TC; 85730-TC; 86886; 86900; 86901; 86920; 87040-TC; 87081; 87086; 93005; 93306; 94640; 94760; 96361; 96365; 96375; 97116-GP; 97530-GP; 99291; C9113; G0378; J0692; J1030; J1265; J1447; J1720; J1940; J2270; J2543; J2765; J3370; J3475; J3480; J3490; J7030; J7040; J7042; J7050; J7060; J7612; J7613; P9021; P9034; P9046

== ENCOUNTER 2019-01-13 09:45 | Inpatient (IN) | payer OTHER ==
[~2019-01-13] VITALS: Ht 162.6 cm; Wt 49.9 kg
[2019-01-13] VITALS (8 sets, daily range): BP systolic 101–128
[2019-01-13] MEDS ORDERED: NS 500 ML IV ONE (10:00)
[2019-01-13] MEDS ORDERED: DIAZEPAM 10 MG/2 ML DISP.SYRIN IVP ONE (10:30)
[2019-01-13 10:35] LABS: HEMATOCRIT 23.4 % (36-48); HEMOGLOBIN 7.9 g/dL (12.0-16.0); MEAN CORPUSCULAR HEMOGLOBIN 31 pg (27-31); MEAN CORPUSCULAR HGB CONC 34 % (32-36); MEAN CORPUSCULAR VOLUME 91 fL (79.0-98.0); PLATELET COUNT (AUTO) 109 K/uL (130-430); RED BLOOD CELL COUNT(AUTO) 2.56 MIL/uL (4.2-6.2); RED CELL DISTRIBUTION WIDTH 17.8 % (9.0-15.0); WHITE BLOOD COUNT (AUTO) 12.3 K/uL (4.8-10.8)
[2019-01-13] MEDS ORDERED: PIPERACILLIN/TAZO 3.375 GM in NS 50 ML IV ONE (10:45)
[2019-01-13] MEDS ORDERED: NACL 0.9% 1,000 ML IV ONE (10:45)
[2019-01-13 10:52] LABS: CALCIUM 7.9 mg/dL (8.4-11.0); CREATININE 0.96 mg/dL (0.55-1.30); POTASSIUM 4.3 mmol/L (3.5-5.1)
[2019-01-13 10:55] LABS: INR 1.1 (0.8-1.2); PROTHROMBIN TIME 11.1 SECS (9.5-12.5)
[2019-01-13 10:58] LABS: ALBUMIN 1.8 g/dL (3.4-4.8); TOTAL BILIRUBIN 1.4 mg/dL (0.0-1.0)
[2019-01-13 11:00] LABS: BAND % (MANUAL) 13 % (0-6); BASOPHILS % (MANUAL) 0 % (0-2); EOSINOPHILS % (MANUAL) 0 % (0-7); LYMPHOCYTES % (MANUAL) 2 % (20-46); MONOCYTES % (MANUAL) 7 % (0-11)
[2019-01-13 11:05] LABS: BILIRUBIN,URINE NEGATIVE (NEGATIVE); BLOOD, URINE 3+ (NEGATIVE); CLARITY/URINE SL CLOUDY (CLEAR); COLOR,URINE YELLOW (YELLOW); GLUCOSE,URINE NEGATIVE (NEGATIVE); KETONES,URINE NEGATIVE (NEGATIVE); LEUKOCYTE ESTERASE ,URINE TRACE (NEGATIVE); NITRITE, URINE NEGATIVE (NEGATIVE); PROTEIN URINE 2+ (NEGATIVE); UROBILINOGEN,URINE 0.2 (0.2-1.0)
[2019-01-13 11:06] LABS: BACTERIA,URINE MODERATE /HPF (None Seen); FINE GRANULAR CASTS,URINE 0-10 /LPF (None Seen); RBC,URINE >100 /HPF (0-3)
[2019-01-13] MEDS ORDERED: ASPIRIN 81 MG TAB.CHEW PO ONE (11:15)
[2019-01-13] MEDS ORDERED: PIPERACILLIN/TAZOBACTAM 3.375 GM/VIAL (ZOSYN) IV ONE (11:42)
[2019-01-13] MEDS ORDERED: DOPamine PREMIX 250 ML IV ONE ×2 (14:15→15:43)
[2019-01-13] MEDS ORDERED: ADENOSINE 6MG/2ML VIAL IVP ONE ×2 (14:45→15:30)
[2019-01-13] MEDS ORDERED: ALBUTEROL SULFATE 0.083% 2.5 MG/3 ML VIAL.NEB INH PRN (15:00)
[2019-01-13] MEDS ORDERED: IPRATROPIUM BROM 0.5 MG/2.5 ML VIAL.NEB (ATROVENT) INH PRN (15:00)
[2019-01-13] MEDS ORDERED: cefTRIAXone 1 GM in D5W 50 ML IV SCH (15:00)
[2019-01-13] MEDS ORDERED: DOPamine PREMIX 250 ML IV PRN (15:30)
[2019-01-13] MEDS ORDERED: NOREPINEPHRINE BITARTRATE 4 MG in D5W 246 ML IV PRN (16:00)
[2019-01-13] MEDS ORDERED: NOREPINEPHRINE 4 MG/4 ML VIAL IV ONE (16:02)
[2019-01-13] MEDS: NOREPINEPHRINE BITARTRATE 4 MG in D5W 246 ML IV PRN (16:04)
[2019-01-13] MEDS ORDERED: POTA20TA83 PO (17:09)
[2019-01-13] MEDS ORDERED: DIF100 PO (17:09)
[2019-01-13] MEDS ORDERED: FOLI-43 PO (17:09)
[2019-01-13] MEDS ORDERED: ACET-2165 PO (17:09)
[2019-01-13] MEDS ORDERED: LEVA1.2527 INH (17:09)
[2019-01-13] MEDS ORDERED: PHEDM120 PO (17:09)
[2019-01-13] MEDS ORDERED: CYAN100010 PO (17:09)
[2019-01-13] MEDS ORDERED: PANT40TA4 PO (17:09)
[2019-01-13] MEDS ORDERED: GUAI400T78 PO (17:09)
[2019-01-13] MEDS ORDERED: methylPREDNISolone SOD SUCC/PF 62.5 MG/ML VIAL IVP ONE (17:15)
[2019-01-13] MEDS: AZITHROMYCIN 500 MG in NS 250 ML IV SCH (17:38)
[2019-01-13] MEDS: D5NS 1,000 ML IV SCH (18:34)
[2019-01-13] MEDS: IPRATROPIUM BROM 0.5 MG/2.5 ML VIAL.NEB (ATROVENT) INH SCH (20:37)
[2019-01-13] MEDS: ALBUTEROL SULFATE 0.083% 2.5 MG/3 ML VIAL.NEB INH SCH (20:37)
[2019-01-13] MEDS: FLUCONAZOLE 100 mg/ NS 50 ML IV SCH (20:46)
[2019-01-13] MEDS: CEFEPIME 1 GM in D5W 50 ML IV SCH (20:46)
[2019-01-13] MEDS ORDERED: methylPREDNISolone SOD SUCC/PF 62.5 MG/ML VIAL IVP SCH (22:00)
[2019-01-13] MEDS: HYDROCORTISONE SOD SUCC 100 MG/2 ML VIAL IVP SCH (22:22)
[2019-01-14] VITALS (22 sets, daily range): BP systolic 96–123
[2019-01-14] MEDS: ALBUTEROL SULFATE 0.083% 2.5 MG/3 ML VIAL.NEB INH SCH ×4 (00:56→19:50)
[2019-01-14] MEDS: IPRATROPIUM BROM 0.5 MG/2.5 ML VIAL.NEB (ATROVENT) INH SCH ×4 (00:56→19:50)
[2019-01-14] MEDS: NOREPINEPHRINE BITARTRATE 4 MG in D5W 246 ML IV PRN (02:16)
[2019-01-14] MEDS ORDERED: NOREPINEPHRINE 4 MG/4 ML VIAL IV ONE (02:24)
[2019-01-14] MEDS: D5NS 1,000 ML IV SCH ×2 (04:03→18:51)
[2019-01-14] MEDS: HYDROCORTISONE SOD SUCC 100 MG/2 ML VIAL IVP SCH ×3 (05:18→21:22)
[2019-01-14 06:34] LABS: BASOPHILS % (AUTO) 0.3 % (0.0-2.0); LYMPHOCYTES # (AUTO) 0.6 K/uL (1.0-5.5); LYMPHOCYTES % (AUTO) 6.8 % (20.5-51.5); MEAN CORPUSCULAR HEMOGLOBIN 31 pg (27-31); MEAN CORPUSCULAR HGB CONC 35 % (32-36); MEAN CORPUSCULAR VOLUME 90 fL (79.0-98.0); MONOCYTES # (AUTO) 0.2 K/uL (0.0-1.0); MONOCYTES % (AUTO) 2.2 % (1.7-9.3); NEUTROPHILS # (AUTO) 7.9 K/uL (1.8-7.7); NEUTROPHILS % (AUTO) 90.7 % (40.0-70.0); PLATELET COUNT (AUTO) 103 K/uL (130-430); RED BLOOD CELL COUNT(AUTO) 2.17 MIL/uL (4.2-6.2); RED CELL DISTRIBUTION WIDTH 17.5 % (9.0-15.0); WHITE BLOOD COUNT (AUTO) 8.7 K/uL (4.8-10.8)
[2019-01-14 07:06] LABS: ALBUMIN 1.4 g/dL (3.4-4.8); CALCIUM 7.8 mg/dL (8.4-11.0); CREATININE 0.89 mg/dL (0.55-1.30); POTASSIUM 3.3 mmol/L (3.5-5.1); TOTAL BILIRUBIN 0.5 mg/dL (0.0-1.0)
[2019-01-14 07:11] LABS: HEMOGLOBIN 6.8 g/dL (12.0-16.0)
[2019-01-14 07:12] LABS: HEMATOCRIT 19.6 % (36-48)
[2019-01-14] MEDS: CEFEPIME 1 GM in D5W 50 ML IV SCH (08:44)
[2019-01-14] MEDS: AZITHROMYCIN 500 MG in NS 250 ML IV SCH (10:31)
[2019-01-14] MEDS ORDERED: POTASSIUM CHLORIDE 20 MEQ TAB.PRT.SR PO ONE (17:45)
[2019-01-14] MEDS: FLUCONAZOLE 100 mg/ NS 50 ML IV SCH (19:51)
[2019-01-14] MEDS: MEROPENEM 1 GM in NS 100 ML IV SCH (21:23)
[2019-01-15] VITALS (24 sets, daily range): BP systolic 82–133
[2019-01-15] MEDS: ALBUTEROL SULFATE 0.083% 2.5 MG/3 ML VIAL.NEB INH SCH ×4 (00:53→20:20)
[2019-01-15] MEDS: IPRATROPIUM BROM 0.5 MG/2.5 ML VIAL.NEB (ATROVENT) INH SCH ×4 (00:53→20:20)
[2019-01-15] MEDS: D5NS 1,000 ML IV SCH ×2 (01:31→18:41)
[2019-01-15] MEDS: HYDROCORTISONE SOD SUCC 100 MG/2 ML VIAL IVP SCH ×3 (05:00→21:06)
[2019-01-15] MEDS: MEROPENEM 1 GM in NS 100 ML IV SCH ×3 (05:01→21:06)
[2019-01-15 05:59] LABS: BASOPHILS % (AUTO) 0.2 % (0.0-2.0); EOSINOPHILS % (AUTO) 0.1 % (0.0-4.0); LYMPHOCYTES # (AUTO) 0.3 K/uL (1.0-5.5); LYMPHOCYTES % (AUTO) 9.4 % (20.5-51.5); MEAN CORPUSCULAR HEMOGLOBIN 30 pg (27-31); MEAN CORPUSCULAR HGB CONC 34 % (32-36); MEAN CORPUSCULAR VOLUME 90 fL (79.0-98.0); MONOCYTES # (AUTO) 0.1 K/uL (0.0-1.0); MONOCYTES % (AUTO) 3.4 % (1.7-9.3); NEUTROPHILS # (AUTO) 3.2 K/uL (1.8-7.7); NEUTROPHILS % (AUTO) 86.9 % (40.0-70.0); PLATELET COUNT (AUTO) 74 K/uL (130-430); RED BLOOD CELL COUNT(AUTO) 2.16 MIL/uL (4.2-6.2); RED CELL DISTRIBUTION WIDTH 16.8 % (9.0-15.0); WHITE BLOOD COUNT (AUTO) 3.7 K/uL (4.8-10.8)
[2019-01-15 06:46] LABS: CALCIUM 7.5 mg/dL (8.4-11.0); POTASSIUM 3.3 mmol/L (3.5-5.1)
[2019-01-15 06:47] LABS: ALBUMIN 1.3 g/dL (3.4-4.8); CREATININE 0.72 mg/dL (0.55-1.30); TOTAL BILIRUBIN 0.4 mg/dL (0.0-1.0)
[2019-01-15 07:07] LABS: HEMOGLOBIN 6.6 g/dL (12.0-16.0)
[2019-01-15 07:08] LABS: HEMATOCRIT 19.4 % (36-48)
[2019-01-15 08:36] LABS: ERYTHROCYTE SEDIMENTATION RATE 106 MM/HR (0-20)
[2019-01-15] MEDS ORDERED: POTASSIUM CHLORIDE 20 MEQ TAB.PRT.SR PO ONE (09:45)
[2019-01-15] MEDS: AZITHROMYCIN 500 MG in NS 250 ML IV SCH (10:03)
[2019-01-15 10:49] LABS: TOTAL IRON BIND. CAPACITY 128 ug/dL (250-450)
[2019-01-15] MEDS: FLUCONAZOLE 100 mg/ NS 50 ML IV SCH (19:41)
[2019-01-16] VITALS (25 sets, daily range): BP systolic 101–135
[2019-01-16] MEDS: ALBUTEROL SULFATE 0.083% 2.5 MG/3 ML VIAL.NEB INH SCH ×3 (00:45→19:59)
[2019-01-16] MEDS: IPRATROPIUM BROM 0.5 MG/2.5 ML VIAL.NEB (ATROVENT) INH SCH ×3 (00:45→19:59)
[2019-01-16] MEDS: HYDROCORTISONE SOD SUCC 100 MG/2 ML VIAL IVP SCH ×3 (05:13→21:52)
[2019-01-16] MEDS: MEROPENEM 1 GM in NS 100 ML IV SCH ×3 (05:13→21:53)
[2019-01-16 05:31] LABS: BASOPHILS % (AUTO) 0.2 % (0.0-2.0); EOSINOPHILS % (AUTO) 0.1 % (0.0-4.0); HEMATOCRIT 24.1 % (36-48); HEMOGLOBIN 8.3 g/dL (12.0-16.0); LYMPHOCYTES # (AUTO) 0.3 K/uL (1.0-5.5); LYMPHOCYTES % (AUTO) 7.2 % (20.5-51.5); MEAN CORPUSCULAR HEMOGLOBIN 31 pg (27-31); MEAN CORPUSCULAR HGB CONC 34 % (32-36); MEAN CORPUSCULAR VOLUME 91 fL (79.0-98.0); MONOCYTES # (AUTO) 0.1 K/uL (0.0-1.0); MONOCYTES % (AUTO) 3.2 % (1.7-9.3); NEUTROPHILS # (AUTO) 3.2 K/uL (1.8-7.7); NEUTROPHILS % (AUTO) 89.3 % (40.0-70.0); PLATELET COUNT (AUTO) 82 K/uL (130-430); RED BLOOD CELL COUNT(AUTO) 2.64 MIL/uL (4.2-6.2); RED CELL DISTRIBUTION WIDTH 17.4 % (9.0-15.0); WHITE BLOOD COUNT (AUTO) 3.6 K/uL (4.8-10.8)
[2019-01-16 05:47] LABS: CALCIUM 7.6 mg/dL (8.4-11.0); CREATININE 0.71 mg/dL (0.55-1.30); POTASSIUM 3.3 mmol/L (3.5-5.1)
[2019-01-16] MEDS: AZITHROMYCIN 500 MG in NS 250 ML IV SCH (09:13)
[2019-01-16] MEDS ORDERED: POTASSIUM CHLORIDE 20 MEQ TAB.PRT.SR PO ONE (10:00)
[2019-01-16] MEDS ORDERED: FUROSEMIDE 20 MG/2 ML VIAL IVP ONE (11:45)
[2019-01-16] MEDS: D5/0.45 NS 1,000 ML IV SCH (12:49)
[2019-01-16] MEDS: FLUCONAZOLE 100 mg/ NS 50 ML IV SCH (19:36)
[2019-01-17] VITALS (19 sets, daily range): BP systolic 106–128
[2019-01-17] MEDS: ALBUTEROL SULFATE 0.083% 2.5 MG/3 ML VIAL.NEB INH SCH ×4 (01:52→20:19)
[2019-01-17] MEDS: IPRATROPIUM BROM 0.5 MG/2.5 ML VIAL.NEB (ATROVENT) INH SCH ×4 (01:53→20:19)
[2019-01-17] MEDS: HYDROCORTISONE SOD SUCC 100 MG/2 ML VIAL IVP SCH ×3 (05:17→22:51)
[2019-01-17] MEDS: MEROPENEM 1 GM in NS 100 ML IV SCH ×3 (05:18→22:51)
[2019-01-17 07:01] LABS: BASOPHILS % (AUTO) 0.1 % (0.0-2.0); EOSINOPHILS % (AUTO) 0.2 % (0.0-4.0); HEMATOCRIT 24.7 % (36-48); HEMOGLOBIN 8.8 g/dL (12.0-16.0); LYMPHOCYTES # (AUTO) 0.4 K/uL (1.0-5.5); LYMPHOCYTES % (AUTO) 11.2 % (20.5-51.5); MEAN CORPUSCULAR HEMOGLOBIN 32 pg (27-31); MEAN CORPUSCULAR HGB CONC 36 % (32-36); MEAN CORPUSCULAR VOLUME 91 fL (79.0-98.0); MONOCYTES # (AUTO) 0.2 K/uL (0.0-1.0); MONOCYTES % (AUTO) 5.1 % (1.7-9.3); NEUTROPHILS # (AUTO) 3.1 K/uL (1.8-7.7); PLATELET COUNT (AUTO) 84 K/uL (130-430); RED BLOOD CELL COUNT(AUTO) 2.73 MIL/uL (4.2-6.2); RED CELL DISTRIBUTION WIDTH 16.7 % (9.0-15.0); WHITE BLOOD COUNT (AUTO) 3.7 K/uL (4.8-10.8)
[2019-01-17 07:06] LABS: ALBUMIN 1.4 g/dL (3.4-4.8); CALCIUM 7.4 mg/dL (8.4-11.0); CREATININE 0.72 mg/dL (0.55-1.30); TOTAL BILIRUBIN 0.4 mg/dL (0.0-1.0)
[2019-01-17] MEDS: AZITHROMYCIN 500 MG in NS 250 ML IV SCH (09:54)
[2019-01-17] MEDS: D5/0.45 NS 1,000 ML IV SCH (09:59)
[2019-01-17] MEDS ORDERED: KCL 40 mEq in 100 mL (PREMIX) 100 ML IV ONE (10:00)
[2019-01-17 12:33] LABS: NEUTROPHILS % (AUTO) 83.4 % (40.0-70.0)
[2019-01-17] MEDS: FLUCONAZOLE 100 mg/ NS 50 ML IV SCH (20:38)
[2019-01-18 00:31] VITALS: BP_SYST 111
[2019-01-18] MEDS: ALBUTEROL SULFATE 0.083% 2.5 MG/3 ML VIAL.NEB INH SCH ×4 (00:56→20:26)
[2019-01-18] MEDS: IPRATROPIUM BROM 0.5 MG/2.5 ML VIAL.NEB (ATROVENT) INH SCH ×4 (00:56→20:26)
[2019-01-18] MEDS: D5/0.45 NS 1,000 ML IV SCH ×2 (04:00→09:46)
[2019-01-18] MEDS: HYDROCORTISONE SOD SUCC 100 MG/2 ML VIAL IVP SCH ×3 (05:26→21:44)
[2019-01-18] MEDS: MEROPENEM 1 GM in NS 100 ML IV SCH (05:27)
[2019-01-18 07:45] VITALS: BP_SYST 112
[2019-01-18 08:02] LABS: BASOPHILS % (AUTO) 0.2 % (0.0-2.0); EOSINOPHILS % (AUTO) 0.2 % (0.0-4.0); LYMPHOCYTES # (AUTO) 0.4 K/uL (1.0-5.5); NEUTROPHILS # (AUTO) 2.8 K/uL (1.8-7.7); WHITE BLOOD COUNT (AUTO) 3.4 K/uL (4.8-10.8)
[2019-01-18 08:09] LABS: HEMOGLOBIN 9.3 g/dL (12.0-16.0); LYMPHOCYTES % (AUTO) 12.5 % (20.5-51.5); MEAN CORPUSCULAR HEMOGLOBIN 32 pg (27-31); MEAN CORPUSCULAR HGB CONC 36 % (32-36); MEAN CORPUSCULAR VOLUME 90 fL (79.0-98.0); MONOCYTES # (AUTO) 0.1 K/uL (0.0-1.0); MONOCYTES % (AUTO) 4.4 % (1.7-9.3); NEUTROPHILS % (AUTO) 82.7 % (40.0-70.0); PLATELET COUNT (AUTO) 86 K/uL (130-430); RED CELL DISTRIBUTION WIDTH 16.8 % (9.0-15.0)
[2019-01-18 08:34] LABS: ALBUMIN 1.5 g/dL (3.4-4.8); CALCIUM 7.5 mg/dL (8.4-11.0); CREATININE 0.79 mg/dL (0.55-1.30); TOTAL BILIRUBIN 0.4 mg/dL (0.0-1.0)
[2019-01-18 08:52] LABS: POTASSIUM 2.9 mmol/L (3.5-5.1)
[2019-01-18] MEDS ORDERED: KCL 40 mEq in 100 mL (PREMIX) 100 ML IV ONE (09:30)
[2019-01-18] MEDS ORDERED: POTASSIUM CHLORIDE 20 MEQ TAB.PRT.SR PO ONE (09:30)
[2019-01-18] MEDS: AZITHROMYCIN 500 MG in NS 250 ML IV SCH (09:38)
[2019-01-18 12:00] VITALS: BP_SYST 117
[2019-01-18] MEDS ORDERED: FLUCONAZOLE 200 mg/ NS 100 ML IV ONE (15:00)
[2019-01-18 16:00] VITALS: BP_SYST 113
[2019-01-18] MEDS: CEFEPIME 1 GM in D5W 50 ML IV SCH (21:46)
[2019-01-19] MEDS: IPRATROPIUM BROM 0.5 MG/2.5 ML VIAL.NEB (ATROVENT) INH SCH ×4 (01:04→19:43)
[2019-01-19] MEDS: ALBUTEROL SULFATE 0.083% 2.5 MG/3 ML VIAL.NEB INH SCH ×4 (01:04→19:44)
[2019-01-19 01:22] VITALS: BP_SYST 129
[2019-01-19] MEDS: HYDROCORTISONE SOD SUCC 100 MG/2 ML VIAL IVP SCH ×2 (05:17→18:11)
[2019-01-19 06:21] LABS: BASOPHILS % (AUTO) 0.4 % (0.0-2.0); EOSINOPHILS % (AUTO) 0.2 % (0.0-4.0); HEMATOCRIT 24.5 % (36-48); HEMOGLOBIN 8.6 g/dL (12.0-16.0); LYMPHOCYTES # (AUTO) 0.6 K/uL (1.0-5.5); LYMPHOCYTES % (AUTO) 17.4 % (20.5-51.5); MEAN CORPUSCULAR HEMOGLOBIN 32 pg (27-31); MEAN CORPUSCULAR HGB CONC 35 % (32-36); MEAN CORPUSCULAR VOLUME 90 fL (79.0-98.0); MONOCYTES # (AUTO) 0.2 K/uL (0.0-1.0); MONOCYTES % (AUTO) 5.6 % (1.7-9.3); NEUTROPHILS # (AUTO) 2.5 K/uL (1.8-7.7); NEUTROPHILS % (AUTO) 76.4 % (40.0-70.0); PLATELET COUNT (AUTO) 86 K/uL (130-430); RED BLOOD CELL COUNT(AUTO) 2.72 MIL/uL (4.2-6.2); RED CELL DISTRIBUTION WIDTH 16.8 % (9.0-15.0); WHITE BLOOD COUNT (AUTO) 3.3 K/uL (4.8-10.8)
[2019-01-19 06:31] LABS: ALBUMIN 1.4 g/dL (3.4-4.8); CALCIUM 7.1 mg/dL (8.4-11.0); CREATININE 0.61 mg/dL (0.55-1.30); POTASSIUM 3.1 mmol/L (3.5-5.1); TOTAL BILIRUBIN 0.5 mg/dL (0.0-1.0)
[2019-01-19 07:40] VITALS: BP_SYST 122
[2019-01-19] MEDS ORDERED: KCL 40 mEq in 100 mL (PREMIX) 100 ML IV ONE (09:30)
[2019-01-19] MEDS: CEFEPIME 1 GM in D5W 50 ML IV SCH ×2 (09:36→20:41)
[2019-01-19] MEDS: D5/0.45 NS 1,000 ML IV SCH (09:37)
[2019-01-19 12:06] VITALS: BP_SYST 111
[2019-01-19 16:00] VITALS: BP_SYST 108
[2019-01-20 00:14] VITALS: BP_SYST 127
[2019-01-20] MEDS: IPRATROPIUM BROM 0.5 MG/2.5 ML VIAL.NEB (ATROVENT) INH SCH ×4 (00:58→19:30)
[2019-01-20] MEDS: ALBUTEROL SULFATE 0.083% 2.5 MG/3 ML VIAL.NEB INH SCH ×4 (00:58→19:30)
[2019-01-20 07:13] LABS: BASOPHILS % (AUTO) 0.5 % (0.0-2.0); EOSINOPHILS % (AUTO) 0.6 % (0.0-4.0); HEMATOCRIT 26.6 % (36-48); HEMOGLOBIN 9.2 g/dL (12.0-16.0); LYMPHOCYTES # (AUTO) 0.6 K/uL (1.0-5.5); LYMPHOCYTES % (AUTO) 16.5 % (20.5-51.5); MEAN CORPUSCULAR HEMOGLOBIN 31 pg (27-31); MEAN CORPUSCULAR HGB CONC 35 % (32-36); MEAN CORPUSCULAR VOLUME 90 fL (79.0-98.0); MONOCYTES # (AUTO) 0.2 K/uL (0.0-1.0); MONOCYTES % (AUTO) 4.8 % (1.7-9.3); NEUTROPHILS # (AUTO) 2.7 K/uL (1.8-7.7); NEUTROPHILS % (AUTO) 77.6 % (40.0-70.0); PLATELET COUNT (AUTO) 83 K/uL (130-430); RED BLOOD CELL COUNT(AUTO) 2.94 MIL/uL (4.2-6.2); RED CELL DISTRIBUTION WIDTH 17.2 % (9.0-15.0); WHITE BLOOD COUNT (AUTO) 3.5 K/uL (4.8-10.8)
[2019-01-20] MEDS: HYDROCORTISONE SOD SUCC 100 MG/2 ML VIAL IVP SCH ×2 (07:46→18:35)
[2019-01-20 07:49] VITALS: BP_SYST 121
[2019-01-20 07:55] LABS: ALBUMIN 1.5 g/dL (3.4-4.8); CALCIUM 7.5 mg/dL (8.4-11.0); CREATININE 0.61 mg/dL (0.55-1.30); POTASSIUM 3.1 mmol/L (3.5-5.1); TOTAL BILIRUBIN 0.5 mg/dL (0.0-1.0)
[2019-01-20] MEDS: CEFEPIME 1 GM in D5W 50 ML IV SCH ×2 (09:26→21:19)
[2019-01-20] MEDS ORDERED: POTASSIUM CHLORIDE 40 MEQ in NS 250 ML IV ONE (10:30)
[2019-01-20 12:36] VITALS: BP_SYST 107
[2019-01-20 16:11] VITALS: BP_SYST 109
[2019-01-20] MEDS: TOBRAMYCIN 300MG/5ML INH AMPUL.NEB INH SCH (19:35)
[2019-01-20 20:00] VITALS: BP_SYST 100
[2019-01-21] VITALS: BP_SYST 122
[2019-01-21] MEDS: IPRATROPIUM BROM 0.5 MG/2.5 ML VIAL.NEB (ATROVENT) INH SCH ×4 (00:45→19:19)
[2019-01-21] MEDS: ALBUTEROL SULFATE 0.083% 2.5 MG/3 ML VIAL.NEB INH SCH ×4 (00:45→19:19)
[2019-01-21] MEDS: HYDROCORTISONE SOD SUCC 100 MG/2 ML VIAL IVP SCH ×2 (06:06→18:23)
[2019-01-21] MEDS: TOBRAMYCIN 300MG/5ML INH AMPUL.NEB INH SCH ×2 (07:10→19:00)
[2019-01-21 08:52] LABS: CALCIUM 7.7 mg/dL (8.4-11.0); CREATININE 0.68 mg/dL (0.55-1.30); POTASSIUM 3.7 mmol/L (3.5-5.1)
[2019-01-21] MEDS: CEFEPIME 1 GM in D5W 50 ML IV SCH ×2 (09:22→20:40)
[2019-01-21 12:28] VITALS: BP_SYST 107
[2019-01-21 16:26] LABS: ASPERGILLUS FLAVUS Negative (Neg:<1:1); ASPERGILLUS FUMIGATUS Negative (Neg:<1:1)
[2019-01-21 16:58] VITALS: BP_SYST 112
[2019-01-21 20:38] VITALS: BP_SYST 102
[2019-01-22 00:29] VITALS: BP_SYST 101
[2019-01-22] MEDS: IPRATROPIUM BROM 0.5 MG/2.5 ML VIAL.NEB (ATROVENT) INH SCH ×3 (01:20→13:23)
[2019-01-22] MEDS: ALBUTEROL SULFATE 0.083% 2.5 MG/3 ML VIAL.NEB INH SCH ×3 (01:20→13:23)
[2019-01-22] MEDS: HYDROCORTISONE SOD SUCC 100 MG/2 ML VIAL IVP SCH (06:06)
[2019-01-22] MEDS: TOBRAMYCIN 300MG/5ML INH AMPUL.NEB INH SCH (07:00)
[2019-01-22] MEDS: CEFEPIME 1 GM in D5W 50 ML IV SCH (08:56)
[2019-01-22 10:19] VITALS: BP_SYST 101
[2019-01-22 12:37] VITALS: BP_SYST 101
[2019-01-22 15:30] VITALS: BP_SYST 101
[2019-01-22 16:11] VITALS: BP_SYST 91
[2019-01-23] MEDS ORDERED: HYDROCORTISONE SOD SUCC 100 MG/2 ML VIAL IVP SCH (09:00)
[2019-02-04 20:03] LABS: COCCIDIOIDES AB COMPLEMENT FIX None Detected (NEGATIVE)
== END 2019-01-22 18:20 | DRG 871 ==
LOC: SED 09:45 → STU 12:28 → OBSVTOIN 12:28 → SIC 14:43 → STU 01-17 17:46 → SMU 01-21 10:33
PROVIDERS: ADMIT Internal Medicine Hospice and Palliative Medicine; ATTEND Internal Medicine Hospice and Palliative Medicine
PROC: 30233N1 Transfusion of Nonautologous Red Blood Cells into Peripheral Vein, Percutaneous Approach (ICD-10-PCS; principal; 2019-01-14)
DX: A41.9 Sepsis, unspecified organism (principal); R65.21 Severe sepsis with septic shock; J96.20 Acute and chronic respiratory failure, unspecified whether with hypoxia or hypercapnia; J15.1 Pneumonia due to Pseudomonas; E87.1 Hypo-osmolality and hyponatremia; I48.92 Unspecified atrial flutter; J44.0 Chronic obstructive pulmonary disease with (acute) lower respiratory infection; E87.2 Acidosis; R64 Cachexia; C34.90 Malignant neoplasm of unspecified part of unspecified bronchus or lung; D61.818 Other pancytopenia; B37.49 Other urogenital candidiasis; J70.0 Acute pulmonary manifestations due to radiation; Z68.1 Body mass index [BMI] 19.9 or less, adult; I48.91 Unspecified atrial fibrillation; I10 Essential (primary) hypertension; D69.6 Thrombocytopenia, unspecified; R31.9 Hematuria, unspecified; F17.210 Nicotine dependence, cigarettes, uncomplicated; Z92.3 Personal history of irradiation; Z92.21 Personal history of antineoplastic chemotherapy; Z85.118 Personal history of other malignant neoplasm of bronchus and lung; Z79.899 Other long term (current) drug therapy
CPT/HCPCS: 36415; 70450-TC; 71045; 71275; 80048; 80053; 81000-TC; 82607; 83540-TC; 83550-TC; 83605; 84484; 85007; 85025; 85027; 85610-TC; 85651-TC; 85730-TC; 86480; 86606; 86635; 86886; 86900; 86901; 86920; 87040-TC; 87070-TC; 87081; 87086; 87101; 87116; 87186-TC; 87205-TC; 93005; 94640; 94760; 96365; 96367; 96376; 97116-GP; 97530-GP; 99285; G0378; J0153; J0456; J0692; J0696; J1265; J1450; J1720; J1940; J2185; J2543; J3260; J3480; J7040; J7042; J7050; J7060; J7613; P9021

== ENCOUNTER 2019-02-17 16:18 | Inpatient (IN) | payer OTHER ==
[~2019-02-17] VITALS: Ht 162.6 cm; Wt 53.1 kg
[~2019-02-17 16:18] MED LIST: ACET-2165 PO; CYAN100010 PO; DIF100 PO; FOLI-43 PO; GUAI400T78 PO; LEVA1.2527 INH; PANT40TA4 PO; PHEDM120 PO; POTA20TA83 PO
[2019-02-17 16:20] VITALS: BP_SYST 99
--- NOTE | 2019-02-17 16:32 | NUR ---
Placed in room 02 . Placed on phototypesetting equipment monitor, blood pressure machine and pulse oximeter. To gown for exam. Side rails up. Report given to MIKE Steele
--- NOTE | 2019-02-17 16:35 | NUR ---
Patient arrived in the ED c/o cough and shortness of breath that started yesterday. Denied any recent injury or falls. Patient is alert and oriented x4, rhonchi on BLL, speaking in full sentences, ambulating using a wheelchair. VSS, pain level 0/10. at bedside. Informed of the wait time. INstructed to notify ED staff for any changes in condition or worsening of symptoms. Patient verbalized understanding.
--- NOTE | 2019-02-17 16:40 | NUR ---
ER Dr. Salinas at bedside examining patient.
--- NOTE | 2019-02-17 16:41 | NUR ---
ECG done at bedside as ordered by Dr. Salinas. Patient tolerated the procedure well.
--- NOTE | 2019-02-17 16:42 | NUR ---
Tracy manley in ED - 02/17/19 at 1816 by [email or web address] ALYX Salinas at bedside examining patient.
--- NOTE | 2019-02-17 16:42 | NUR ---
# 22 gauge angiocath placed to LFA. Use of asceptic technique. Opsite placed over site. Blood return noted. Blood for lab drawn from site. Flushed with 10 cc of normal saline. No evidence of infiltration noted. Patient tolerated well.
[2019-02-17] MEDS ORDERED: NACL 0.9% 1,000 ML IV ONE ×2 (17:00→18:15)
[2019-02-17 17:18] LABS: BASOPHILS % (AUTO) 0.3 % (0.0-2.0); EOSINOPHILS # (AUTO) 0.1 K/uL (0.0-0.4); EOSINOPHILS % (AUTO) 2.6 % (0.0-4.0); HEMATOCRIT 22.8 % (36-48); HEMOGLOBIN 7.8 g/dL (12.0-16.0); LYMPHOCYTES # (AUTO) 1.2 K/uL (1.0-5.5); LYMPHOCYTES % (AUTO) 23.5 % (20.5-51.5); MEAN CORPUSCULAR HEMOGLOBIN 32 pg (27-31); MEAN CORPUSCULAR HGB CONC 34 % (32-36); MEAN CORPUSCULAR VOLUME 93 fL (79.0-98.0); MONOCYTES # (AUTO) 0.5 K/uL (0.0-1.0); MONOCYTES % (AUTO) 10.3 % (1.7-9.3); NEUTROPHILS # (AUTO) 3.2 K/uL (1.8-7.7); NEUTROPHILS % (AUTO) 63.3 % (40.0-70.0); PLATELET COUNT (AUTO) 176 K/uL (130-430); RED BLOOD CELL COUNT(AUTO) 2.45 MIL/uL (4.2-6.2); RED CELL DISTRIBUTION WIDTH 17.4 % (9.0-15.0)
[2019-02-17 17:39] LABS: CALCIUM 8.4 mg/dL (8.4-11.0); CREATININE 0.97 mg/dL (0.55-1.30); POTASSIUM 4.5 mmol/L (3.5-5.1)
[2019-02-17 17:45] LABS: ALBUMIN 2.2 g/dL (3.4-4.8); TOTAL BILIRUBIN 0.6 mg/dL (0.0-1.0)
--- NOTE | 2019-02-17 17:55 | NUR ---
ER Dr. Salinas at bedside examining patient.
[2019-02-17] MEDS ORDERED: PIPERACILLIN/TAZO 3.375 GM in NS 50 ML IV ONE (18:15)
[2019-02-17] MEDS ORDERED: PIPERACILLIN/TAZOBACTAM 3.375 GM/VIAL (ZOSYN) IV ONE (18:40)
--- NOTE | 2019-02-17 18:40 | NUR ---
Reconciled medications.
--- NOTE | 2019-02-17 18:50 | NUR ---
Received admission orders from Dr. Waldron.
--- NOTE | 2019-02-17 19:10 | NUR ---
Report and care transferred to MIKE Campoverde.
[2019-02-17] MEDS ORDERED: IPRATROPIUM BROM 0.5 MG/2.5 ML VIAL.NEB (ATROVENT) INH PRN (19:30)
[2019-02-17] MEDS ORDERED: HYDROCORTISONE SOD SUCC 100 MG/2 ML VIAL IVP ONE (19:30)
[2019-02-17] MEDS ORDERED: ALBUTEROL SULFATE 0.083% 2.5 MG/3 ML VIAL.NEB INH PRN (19:30)
--- NOTE | 2019-02-17 20:02 | NUR ---
PT MEDICATED. PT TOLERATED WELL.
--- NOTE | 2019-02-17 20:10 | NUR ---
Patient will be admitted to care of Vanita. Admitted to tele unit. Will go to room 126B. Belongings list completed. Complete and up to date summary report printed. SBAR report to be given at bedside with opportunity for questions.
--- NOTE | 2019-02-17 20:11 | NUR ---
Transfer to Telemetry room 126B via ACLS protocol. Licensed nurse present. IV present no signs or symptoms of infiltration.
--- NOTE | 2019-02-17 20:33 | NUR ---
ADMIT NOTE Received pt from ER to the floor with a diagnosis of COPD/SEPSIS. Admission process initiated. patient oriented to pain management, safety and call light-teach back done.
[2019-02-17 20:41] VITALS: BP_SYST 94
[2019-02-17 21:05] VITALS: BP_SYST 90
[2019-02-17] MEDS: NACL 0.9% 1,000 ML IV SCH (21:42)
--- NOTE | 2019-02-17 22:00 | NUR ---
PATIENT ADMITTED TO FLOOR FROM ER PER FELIPE, A/O/X/4, RESPIRATIONS EVEN AND UNLABORED, DOES SHOW SOB ON EXCERTION, ON O2 @ 2L/M VIA N/C,DOES HAVE DRY COUGH,NSINFUSING @ 100ML/HR IN LFA #22G,SKIN INTACT, INCONTIENENT OF URINE KEPT CLEAN AND DRY.RESTING QUIETLY IN BED WITH EYES CLOSED, @ BEDSIDE, WILL CONTINUE TO MONITOR.
--- NOTE | 2019-02-17 22:06 | NUR ---
Per Audi/Lab, MRSA Nares culture was received from ER and will be sent to [facility] tomorrow.
[2019-02-17] MEDS: HYDROCORTISONE SOD SUCC 100 MG/2 ML VIAL IVP SCH (22:14)
[2019-02-18] VITALS: BP_SYST 98
[2019-02-18] MEDS: PIPERACILLIN/TAZO 3.375/DEX-IS 50 ML IV SCH ×5 (00:22→23:12)
[2019-02-18] MEDS: ALBUTEROL SULFATE 0.083% 2.5 MG/3 ML VIAL.NEB INH SCH ×4 (00:43→19:40)
[2019-02-18] MEDS: IPRATROPIUM BROM 0.5 MG/2.5 ML VIAL.NEB (ATROVENT) INH SCH ×4 (00:43→19:40)
--- NOTE | 2019-02-18 02:20 | NUR ---
Consultation Paged Reason for Consultation: COPD Was consult called: Y Person who was notified: Jadyn Consulting Physician: Padmini Turner Rigger Third Ordering Physician: Dr. Waldron
[2019-02-18 04:37] VITALS: BP_SYST 102
[2019-02-18] MEDS: HYDROCORTISONE SOD SUCC 100 MG/2 ML VIAL IVP SCH ×3 (06:02→23:11)
[2019-02-18] MEDS: NACL 0.9% 1,000 ML IV SCH ×2 (06:10→17:41)
--- NOTE | 2019-02-18 07:30 | NUR ---
Opening Notes Patient received alert, awake and verbally responsive, on 02 at 2 lpm via NC, respiration even and unlabored, denies any pain or discomfort at this time. noted with occasional moist cough, able to expectorate phlegm, IVF infusing well. Discussed plan of care and importance of using call, patient verbalized understanding. Call light within the reach. Will continue to monitor.
--- NOTE | 2019-02-18 09:30 | NUR ---
RN ROUNDs at bed side, patient remain to be alert, awake and verbally responsive. Denies any difficulty breathing at this time, on 02 at 2lpm via NC, Call light within the reach.
--- NOTE | 2019-02-18 10:37 | NUR ---
Nutrition Update Ceferino Scale 17 noted. Pt admitted for COPD, sepsis. Diet: regular BMI: 20.1 kg/m2 RD to follow per nutrition care standards.
[2019-02-18 10:38] VITALS: BP_SYST 130
--- NOTE | 2019-02-18 11:51 | NUR ---
RN ROUNDS Patient watching tv, denies any pain or discomfort, IVF and ATB Zosyn infusing well, well tolerated, no signs and symptoms of adverse reactions noted at this time. Call light within the reach.
[2019-02-18 12:18] VITALS: BP_SYST 90
--- NOTE | 2019-02-18 13:00 | NUR ---
RN ROUNDS Patient remain to be alert, awake and verbally responsive. Denies any pain or discomfort at this time. Respiration even and unlabored. Call light within the reach.
--- NOTE | 2019-02-18 15:30 | NUR ---
RN ROUNDS Patient remain to be alert, awake and verbally responsive. Denies any pain or discomfort at this time. IVF infusing well. Call light within the reach.
[2019-02-18 16:30] VITALS: BP_SYST 100
--- NOTE | 2019-02-18 17:15 | NUR ---
Nutrition Assessment (short note d/t high patient load) A - RD reviewed pertinent nutrition-related info via EMR (physician notes/nursing notes/labs/meds/nursing care trends/care activity). Admission Dx: COPD, sepsis PMH: COPD, CHF, sepsis per physician notes Current Diet Order/Nutrition Support: Regular x0 days Ht: 5'4" Wt: 117#/53 kg IBW: 120#/55 kg %IBW: 96% UBW: 136#/62 kg %UBW: 86% BMI: 20.1 kg/m2 (low for geriatric age) Subjective Info: RD Notification received for unintentional wt loss without trying (14-23#), pt eating poorly greater than 1 week because of decreased appetite. Pt reported that she lost wt since April 2018 when she was Dx w/ CA. Note possible 19# wt loss within 9 months/14% wt change. Pt reported lack of appetite, but inquired about Ensure (chocolate/strawberry). ONS is appropriate for pt's current condition. Anthropometrics verified. Pt has upper dentures. Pt denied any chewing/swallowing difficulties w/ current diet order. ESTIMATED NUTRITIONAL NEEDS CALORIES/DAY: 0730-7822 kcal/day (30-35 kcal/kg CBW for CA, sepsis) PROTEIN/DAY: 64-80 gm/day (1.2-1.5 gm/kg CBW for CA, sepsis) FLUID/DAY: Per physician d/t CHF D - Unintentional wt loss related to catabolic illness as evidenced by possible 19# wt loss within 9 months/14% wt change within 9 months. I - Recommend regular diet w/ Ensure Enlive TID (ONS provides 1050 kcal/day, 60 gm protein/day) M - Monitor appetite and PO intakes w/ goal of pt meeting at least 75% of estimated nutritional needs, labs trending WNL, normal GI function, and skin integrity/wt maintenance E - Moderate risk; F/U within 3-5 days
--- NOTE | 2019-02-18 17:20 | NUR ---
Dietitian Recommendations * Recommend regular diet w/ Ensure Enlive TID (ONS provides 1050 kcal/day, 60 gm protein/day) LP, RD Please refer to Nutrition Assessment for details.
--- NOTE | 2019-02-18 17:30 | NUR ---
RN ROUNDS Patient respiration even and unlabored. On 02 at 2lpm via NC. IVF infusing well. Call light within the reach.
--- NOTE | 2019-02-18 19:45 | NUR ---
RN ROUNDS Patient remain to be alert, awake and verbally responsive, denies any pain or discomfort, on 02 at 2lpm via NC, respiration even and unlabored, No sob, no congestion, still noted with occasional moist cough, IVF infusing well. Call light within the reach. at bedside.
[2019-02-18 20:00] VITALS: BP_SYST 97
--- NOTE | 2019-02-18 21:00 | NUR ---
RN ROUNDS at bedside, patient alert, awake and verbally responsive, no sob, denies any difficulty breathing. Call light within the reach.
--- NOTE | 2019-02-18 23:47 | NUR ---
RN ROUNDS Patient still awake, watching tv, denies any pain or difficulty. IVF infusing well. Call light within the reach.
[2019-02-19 00:34] VITALS: BP_SYST 98
[2019-02-19] MEDS: IPRATROPIUM BROM 0.5 MG/2.5 ML VIAL.NEB (ATROVENT) INH SCH ×4 (01:50→20:14)
[2019-02-19] MEDS: ALBUTEROL SULFATE 0.083% 2.5 MG/3 ML VIAL.NEB INH SCH ×4 (01:50→20:14)
--- NOTE | 2019-02-19 01:57 | NUR ---
RN Rounds Patient eyes closed, on 02 at 2lpm via nc, visible chest rise and fall, no moaning or grimacing noted. IVF infusing well. Call light within the reach.
--- NOTE | 2019-02-19 03:22 | NUR ---
Transfer of care SBAR report given to MIKE Reyna at bedside, patient eyes closed, on 02 at 2lpm via NC, visible rise and fall of chest noted, no moaning or grimacing noted, IVF infusing well. Call light within the reach.
--- NOTE | 2019-02-19 03:31 | NUR ---
CONTINUATION OF CARE PATIENT APPEARS TO BE RESTING NO SIGNS OF ANY DISTRESS, BREATHING IS EQUAL AND NON LABORED. PATIENT HAS ALL SAFETY PRECAUTIONS IN PLACE.
[2019-02-19] MEDS: PIPERACILLIN/TAZO 3.375/DEX-IS 50 ML IV SCH ×4 (05:32→23:07)
[2019-02-19] MEDS: HYDROCORTISONE SOD SUCC 100 MG/2 ML VIAL IVP SCH ×3 (05:32→21:03)
--- NOTE | 2019-02-19 05:33 | NUR ---
medication/ incontinence care patient is awake and alert no signs of any distress, breathing is equal and non labored. patient has on 2 nasal canula.educated teacher education director light for assistance. call light is with patient patient has no complaints at this time. all safety precautions in place. incontinence care provided patient spouse brought depends patient is requesting to have them on. no other needs at this time. will continue to monitor
[2019-02-19 07:30] VITALS: BP_SYST 99
--- NOTE | 2019-02-19 08:00 | NUR ---
rn rounding patient is sitting up in bed no signs of any distress,breathing is equal and non labored. patient has all safety precautions in place. call light is with her educated to use for assistance. patent has no complaints at this time. will continue to monitor.
[2019-02-19 08:53] LABS: ALBUMIN 1.8 g/dL (3.4-4.8); CALCIUM 7.7 mg/dL (8.4-11.0); CREATININE 0.92 mg/dL (0.55-1.30); POTASSIUM 3.1 mmol/L (3.5-5.1); TOTAL BILIRUBIN 0.2 mg/dL (0.0-1.0)
[2019-02-19 09:54] LABS: MEAN CORPUSCULAR HEMOGLOBIN 31 pg (27-31); MEAN CORPUSCULAR HGB CONC 33 % (32-36); MEAN CORPUSCULAR VOLUME 94 fL (79.0-98.0); PLATELET COUNT (AUTO) 161 K/uL (130-430); RED CELL DISTRIBUTION WIDTH 17.1 % (9.0-15.0); WHITE BLOOD COUNT (AUTO) 3.5 K/uL (4.8-10.8)
[2019-02-19] MEDS ORDERED: POTASSIUM CHLORIDE 20 MEQ TAB.PRT.SR PO ONE (10:00)
[2019-02-19 10:01] LABS: RED BLOOD CELL COUNT(AUTO) 1.98 MIL/uL (4.2-6.2)
[2019-02-19 10:02] LABS: HEMOGLOBIN 6.2 g/dL (12.0-16.0)
[2019-02-19 10:03] LABS: HEMATOCRIT 18.6 % (36-48)
--- NOTE | 2019-02-19 10:29 | NUR ---
medication patients scheduled medication given per order. paging dr. Waldron for critical lab. patient is awake and alert no signs of any distress, breathing is equal and non labored. patient has spouse at bedside. patient and spouse educated home care companion light, call light is with patient. patient has no other needs at this time.
[2019-02-19 12:11] LABS: BAND % (MANUAL) 11 % (0-6); BASOPHILS % (MANUAL) 0 % (0-2); EOSINOPHILS % (MANUAL) 1 % (0-7); LYMPHOCYTES % (MANUAL) 6 % (20-46); MONOCYTES % (MANUAL) 8 % (0-11)
[2019-02-19 12:13] VITALS: BP_SYST 107
--- NOTE | 2019-02-19 12:18 | NUR ---
medication patients scheduled medication given per order. patient is awake and alert no signs of any distress, breathing is equal and non labored. patient has all safety precautions in place. call light is with her educated to use for assistance. patient has spouse at bed side. will continue to monitor. still waiting for md to call back after 3rd page.
--- NOTE | 2019-02-19 12:30 | NUR ---
dr. henao at nurses station states he is covering for dr. torres. orders were recieved for blood. patient is aware, orders were placed.
--- NOTE | 2019-02-19 14:00 | NUR ---
medication/ blood consent/ incontinence care incontinence care provided to patient s requested. patient placed in depends that spouse brought. patient's scheduled medication given as ordered. patient educated relationship management lead light call light is with her. Dr. henao at bedside. blood consent form signed. patient has no complaint at this time. no signs of any distress.
--- NOTE | 2019-02-19 14:09 | NUR ---
GI consult called: for Dr. Brown (Dr. Jay control systems engineer), regarding anemia, ordered by Dr. Geno Fox, spoke with Renee.
--- NOTE | 2019-02-19 14:33 | NUR ---
Hemo consult called: for Dr. Vieira, regarding anemia, ordered by Dr. Geno Fox, spoke with Pattie.
--- NOTE | 2019-02-19 15:26 | NUR ---
transfer of care report endorsed to ele sauer. patient is awake and alert, educated on transfer of care. call light is with her, educated to use for assistance. patient has no complaints at this time. all safety precautions in place.
--- NOTE | 2019-02-19 15:28 | NUR ---
ASSUMED CARE OF PT Received report from Carli MCKEON. Received pt AAOx4, no s/s resp distress, no c/o pain or discomfort. Pt's at bedside. Needs met, call light within reach.
--- NOTE | 2019-02-19 19:27 | NUR ---
CLOSING NOTE Pt sitting up in bed watching television with no s/s resp distress, no c/o pain or discomfort. Noted pt with sporadic cough. Pt's 1st unit of blood ready-endorsed to [facility] shift lead nurse. Needs met, call light within reach.
--- NOTE | 2019-02-19 19:35 | NUR ---
ROUNDS PATIENT RESTING COMFORTABLY IN BED, NOT IN DISTRESS, VITALS STABLE. DENIES ANY PAIN AND DISCOMFORT AT THIS TIME. ASSESSMENT DONE AND DOCUMENTED. SEE FLOWSHEET. NEEDS ATTENDED TO. SAFETY AND FALL MEASURES IN PLACED. CALL LIGHT PLACED WITHIN REACH.
--- NOTE | 2019-02-19 20:02 | NUR ---
BLOOD TRANSFUSION IST UNIT PRBC STARTED ORDERED, VITALS STABLE, NO S/S OF TRANSFUSION REACTION NOTED. WILL CONTINUE TO MON ITOR.
--- NOTE | 2019-02-20 00:02 | NUR ---
BLOOD TRANSFUSION 2ND UNIT PRBC STARTED, VITALS STABLE, NO S/S OF TRANSFUSION REACTION NOTED. WILL CONTINUE TO MONITOR.
[2019-02-20 00:03] VITALS: BP_SYST 119
[2019-02-20] MEDS: IPRATROPIUM BROM 0.5 MG/2.5 ML VIAL.NEB (ATROVENT) INH SCH ×3 (01:16→13:28)
[2019-02-20] MEDS: ALBUTEROL SULFATE 0.083% 2.5 MG/3 ML VIAL.NEB INH SCH ×3 (01:16→13:28)
--- NOTE | 2019-02-20 01:54 | NUR ---
paged paged for Dr Waldron, Dr Preet Fox is on-call, dialed . s/w Lisa.
--- NOTE | 2019-02-20 02:17 | NUR ---
ROUNDS PATIENT ASLEEP, RESPIRATIONS EVEN AND UNLABORED, CALL LIGHT PLACED WITHIN REACH.
--- NOTE | 2019-02-20 04:13 | NUR ---
PATIENT RESTING: Patient resting quietly. No acute distress noted. Vital signs within normal range.
--- NOTE | 2019-02-20 04:37 | NUR ---
paged second page for Dr Waldron, Dr Preet Fox is on-call, dialed . s/w [place].
[2019-02-20] MEDS: PIPERACILLIN/TAZO 3.375/DEX-IS 50 ML IV SCH ×2 (05:27→12:34)
[2019-02-20] MEDS: HYDROCORTISONE SOD SUCC 100 MG/2 ML VIAL IVP SCH (05:27)
--- NOTE | 2019-02-20 06:50 | NUR ---
CLOSING NOTES PATIENT ASLEEP, VITALS STABLE, NO SIGNS OF ANY PAIN AT THIS TIME. ALL NEEDS ATTENDED TO. CALL LIGHT PLACED WITHIN REACH.
[2019-02-20 07:15] VITALS: BP_SYST 119
[2019-02-20 08:00] VITALS: BP_SYST 118
[2019-02-20 09:41] LABS: BASOPHILS % (AUTO) 0.2 % (0.0-2.0); EOSINOPHILS % (AUTO) 0.1 % (0.0-4.0); HEMATOCRIT 31.3 % (36-48); HEMOGLOBIN 10.6 g/dL (12.0-16.0); LYMPHOCYTES # (AUTO) 0.4 K/uL (1.0-5.5); LYMPHOCYTES % (AUTO) 5.6 % (20.5-51.5); MEAN CORPUSCULAR HEMOGLOBIN 31 pg (27-31); MEAN CORPUSCULAR HGB CONC 34 % (32-36); MEAN CORPUSCULAR VOLUME 90 fL (79.0-98.0); MONOCYTES # (AUTO) 0.3 K/uL (0.0-1.0); MONOCYTES % (AUTO) 5.2 % (1.7-9.3); NEUTROPHILS # (AUTO) 5.6 K/uL (1.8-7.7); NEUTROPHILS % (AUTO) 88.9 % (40.0-70.0); PLATELET COUNT (AUTO) 175 K/uL (130-430); RED BLOOD CELL COUNT(AUTO) 3.48 MIL/uL (4.2-6.2); RED CELL DISTRIBUTION WIDTH 17.4 % (9.0-15.0); RETICULOCYTE COUNT 2.7 % (0.5-1.5); WHITE BLOOD COUNT (AUTO) 6.3 K/uL (4.8-10.8)
[2019-02-20 09:50] LABS: C-REACTIVE PROTEIN QUANT 5.1 mg/dL (0-0.5); CALCIUM 8.4 mg/dL (8.4-11.0); CREATININE 1.09 mg/dL (0.55-1.30); POTASSIUM 3.6 mmol/L (3.5-5.1)
[2019-02-20 09:54] LABS: TOTAL IRON BIND. CAPACITY 148 ug/dL (250-450)
--- NOTE | 2019-02-20 10:00 | NUR ---
rounds seen by dr martinez at bedside . sleeps at intervals.
[2019-02-20 10:30] LABS: ERYTHROCYTE SEDIMENTATION RATE 80 MM/HR (0-20)
[2019-02-20] MEDS ORDERED: LEVO500T89 PO (12:17)
[2019-02-20] MEDS ORDERED: METR500T PO (12:17)
[2019-02-20] MEDS ORDERED: PRED20TA PO (12:17)
--- NOTE | 2019-02-20 12:41 | NUR ---
rounds seen by dr jovel and order to go home if okay with dr martinez. will call dr costa if patient is cleared.
[2019-02-20 12:51] VITALS: BP_SYST 130
[2019-02-20] MEDS ORDERED: HYDROCORTISONE SOD SUCC 100 MG/2 ML VIAL IVP SCH (14:00)
[2019-02-20 15:43] VITALS: BP_SYST 130
--- NOTE | 2019-02-20 16:30 | NUR ---
closing notes pt was discharged accompanied by the . ivl and id band was removed. med rec explained to patient and prescription that needs to be picked at her pharmacy. stable needs attended. no sob noted.
[2019-02-21 05:07] LABS: FOLATE (FOLIC ACID) 17.3 ng/mL (>3.0)
== END 2019-02-20 16:30 | disposition home or self-care (01) | DRG 871 ==
LOC: SED 16:18 → STU 18:53
PROVIDERS: ADMIT Internal Medicine Hospice and Palliative Medicine; ATTEND Internal Medicine Hospice and Palliative Medicine
PROC: 30233N1 Transfusion of Nonautologous Red Blood Cells into Peripheral Vein, Percutaneous Approach (ICD-10-PCS; principal; 2019-02-19)
DX: A41.9 Sepsis, unspecified organism (principal); J18.9 Pneumonia, unspecified organism; E43 Unspecified severe protein-calorie malnutrition; J96.20 Acute and chronic respiratory failure, unspecified whether with hypoxia or hypercapnia; J44.1 Chronic obstructive pulmonary disease with (acute) exacerbation; J44.0 Chronic obstructive pulmonary disease with (acute) lower respiratory infection; E87.1 Hypo-osmolality and hyponatremia; C34.90 Malignant neoplasm of unspecified part of unspecified bronchus or lung; E83.52 Hypercalcemia; E87.6 Hypokalemia; D63.8 Anemia in other chronic diseases classified elsewhere; R73.9 Hyperglycemia, unspecified; D72.819 Decreased white blood cell count, unspecified; J20.9 Acute bronchitis, unspecified; I50.9 Heart failure, unspecified; I11.0 Hypertensive heart disease with heart failure; Z92.3 Personal history of irradiation; Z92.21 Personal history of antineoplastic chemotherapy; Z87.01 Personal history of pneumonia (recurrent); Z79.899 Other long term (current) drug therapy; Z87.891 Personal history of nicotine dependence; Z68.20 Body mass index [BMI] 20.0-20.9, adult
CPT/HCPCS: 36415; 71045; 80048; 80053; 82607; 82728; 82746; 83540-TC; 83550-TC; 83605; 84484; 85007; 85025; 85027; 85044-TC; 85651-TC; 86140; 86886; 86900; 86901; 86920; 87040-TC; 87081; 93005; 94640; 94760; 96365; 96375; 99291; G0378; J1720; J2543; J7030; J7613; P9021

== ENCOUNTER 2019-03-31 14:17 | Outpatient (CLI) | payer OTHER ==
[~2019-03-31 14:17] MED LIST changes: +LEVO500T89 PO; +METR500T PO; +PRED20TA PO
== END 2019-03-31 21:03 | disposition home or self-care (01) ==
LOC: SRD 14:17
PROVIDERS: ATTEND Internal Medicine Pulmonary Disease
DX: J92.9 Pleural plaque without asbestos (principal); R91.1 Solitary pulmonary nodule; R05 Cough
CPT/HCPCS: 71046-TC

== ENCOUNTER 2019-10-06 14:34 | Outpatient (CLI) | payer OTHER | END 2019-10-06 20:00 | disposition home or self-care (01) | LOC: SRD 14:34 | PROVIDERS: ATTEND Internal Medicine Pulmonary Disease | DX: C34.90 Malignant neoplasm of unspecified part of unspecified bronchus or lung (principal); J44.9 Chronic obstructive pulmonary disease, unspecified; R91.8 Other nonspecific abnormal finding of lung field; J90 Pleural effusion, not elsewhere classified | CPT/HCPCS: 71046-TC ==

== ENCOUNTER 2019-12-22 11:35 | Outpatient (CLI) | payer OTHER ==
[~2019-12-22 11:35] MED LIST changes: -ACET-2165 PO; +ACET325T PO; -GUAI400T78 PO; +GUAI400T93 PO; -PANT40TA4 PO; +PANT40TA45 PO
== END 2019-12-22 20:25 | disposition home or self-care (01) ==
LOC: SRD 11:35
PROVIDERS: ATTEND Internal Medicine Pulmonary Disease
DX: C34.90 Malignant neoplasm of unspecified part of unspecified bronchus or lung (principal)
CPT/HCPCS: 71046-TC

== ENCOUNTER 2020-01-05 12:11 | Inpatient (IN) | payer OTHER, SELFPAY ==
[~2020-01-05] VITALS: Ht 162.6 cm; Wt 69.1 kg
[2020-01-05 12:14] VITALS: BP_SYST 114
--- NOTE | 2020-01-05 12:14 | NUR ---
Patient to ER bed 01 to gown for evaluation. Side rails up. Report given to MIKE SCHULZ.
--- NOTE | 2020-01-05 12:15 | NUR ---
Pt bib with c/o left sided weakness x6 weeks and ALOC. V/S stable, pt is afebrile. Currently resting in bed, will continue to monitor.
--- NOTE | 2020-01-05 12:20 | NUR ---
# 18 gauge port placed to RU chest. Use of asceptic technique. Opsite placed over site. Blood return noted. Blood for lab drawn from site. Flushed with 10 cc of normal saline. No evidence of infiltration noted. Patient tolerated well.
--- NOTE | 2020-01-05 12:20 | NUR ---
ER Dr. Miller at bedside examining patient.
--- NOTE | 2020-01-05 12:25 | NUR ---
Radiology at bedside for CXR.
--- NOTE | 2020-01-05 12:30 | NUR ---
Lab at bedside for blood cultures.
[2020-01-05 12:57] LABS: BASOPHILS % (AUTO) 0.2 % (0.0-2.0); EOSINOPHILS # (AUTO) 0.2 K/uL (0.0-0.4); EOSINOPHILS % (AUTO) 2.5 % (0.0-4.0); LYMPHOCYTES # (AUTO) 1.1 K/uL (1.0-5.5); MEAN CORPUSCULAR HEMOGLOBIN 33 pg (27-31); MEAN CORPUSCULAR HGB CONC 34 % (32-36); MEAN CORPUSCULAR VOLUME 96 fL (79.0-98.0); MONOCYTES # (AUTO) 0.7 K/uL (0.0-1.0); MONOCYTES % (AUTO) 8.6 % (1.7-9.3); NEUTROPHILS # (AUTO) 5.8 K/uL (1.8-7.7); NEUTROPHILS % (AUTO) 74.7 % (40.0-70.0); PLATELET COUNT (AUTO) 173 K/uL (130-430); RED BLOOD CELL COUNT(AUTO) 4.28 MIL/uL (4.2-6.2); RED CELL DISTRIBUTION WIDTH 14.1 % (9.0-15.0); WHITE BLOOD COUNT (AUTO) 7.8 K/uL (4.8-10.8)
[2020-01-05 13:13] LABS: CALCIUM 9.2 mg/dL (8.4-11.0); CREATININE 1.12 mg/dL (0.55-1.30); POTASSIUM 4.2 mmol/L (3.5-5.1)
[2020-01-05 13:19] LABS: ALBUMIN 3.9 g/dL (3.4-4.8); TOTAL BILIRUBIN 0.5 mg/dL (0.0-1.0)
[2020-01-05 13:25] LABS: PROTHROMBIN TIME 9.9 SECS (9.5-12.5)
--- NOTE | 2020-01-05 14:30 | NUR ---
Pt moved to bed 5, at bedside per Dr. Acevedo. V/S stable no distress noted.
[2020-01-05 15:26] LABS: BILIRUBIN,URINE NEGATIVE (NEGATIVE); BLOOD, URINE NEGATIVE (NEGATIVE); CLARITY/URINE SL CLOUDY (CLEAR); COLOR,URINE YELLOW (YELLOW); GLUCOSE,URINE NEGATIVE (NEGATIVE); KETONES,URINE NEGATIVE (NEGATIVE); LEUKOCYTE ESTERASE ,URINE 2+ (NEGATIVE); NITRITE, URINE POSITIVE (NEGATIVE); PH,URINE 5.5 (5.0-8.0); PROTEIN URINE NEGATIVE (NEGATIVE); UROBILINOGEN,URINE 0.2 (0.2-1.0)
[2020-01-05 15:57] LABS: BACTERIA,URINE None Seen /HPF (None Seen); RBC,URINE NONE SEEN /HPF (0-3); WBC,URINE 20-50 /HPF (0-3)
[2020-01-05] MEDS ORDERED: cefTRIAXone 1 GM IVPB PREMIX 50 ML IV ONE (16:15)
[2020-01-05] MEDS ORDERED: levETIRAcetam 1,000 MG IV BAG 100 ML IV ONE (16:15)
--- NOTE | 2020-01-05 19:25 | NUR ---
Care of patient endorsed to MIKE Lockett. Pt currently resting in bed, no distress noted.
--- NOTE | 2020-01-05 19:42 | NUR ---
Patient voiced no complaints at this time. at bedside. VSS
--- NOTE | 2020-01-05 21:37 | NUR ---
REPORT GIVEN OVER THE PHONE TO MIKE DELGADO
--- NOTE | 2020-01-05 21:38 | NUR ---
Patient will be admitted to care of DR. LEDESMA. Admitted to MED SURG unit. Will go to room 104 A Belongings list completed. Complete and up to date summary report printed. SBAR report to be given at bedside with opportunity for questions.
--- NOTE | 2020-01-05 21:39 | NUR ---
Transfer to [facility]. IV present no sign or symptom of infiltration.
[2020-01-05 21:46] VITALS: BP_SYST 107
--- NOTE | 2020-01-05 21:54 | NUR ---
ADMISSION NOTE Received patient from ER via gurney. Patient admitted with diagnosis of ALTERED LEVEL OF CONCIOUSNESS. Patient is awake, alert, oriented X 3. Patient oriented to hospital room, call light, toileting, pain management and safety-teach back done. Patient informed that KATELYNN will be nurse and that their room number is 104A. Personal belongings checked and Belongings List documented. Call light within reach.
[2020-01-05 21:55] VITALS: BP_SYST 120
--- NOTE | 2020-01-06 00:02 | NUR ---
CONSULTATION PAGED/CALLED Reason for Consultation: TONY Person Who was Notified: GIANLUCA Consulting Physician: LAURA Lange Specialty: Ordering Physician: Geno LEDESMA Addendum: 01/06/20 at 0040 by Sofy Crane CNA NEW REASON CEREBRAL MASS
[2020-01-06] MEDS ORDERED: LORazepam 2 MG/ML VIAL IVP PRN (00:30)
[2020-01-06] MEDS ORDERED: HYDROcodone/ACETAMIN 10-325 MG TAB PO PRN (00:30)
[2020-01-06] MEDS ORDERED: HYDROcodone/ACETAMIN 5-325 MG TAB (NORCO/ VICODIN) PO PRN (00:30)
[2020-01-06] MEDS ORDERED: ONDANSETRON HCL 4 MG/2 ML VIAL IVP PRN (00:30)
[2020-01-06] MEDS ORDERED: NALOXONE HCL 0.4 MG/ML AMP (NARCAN) IVP PRN ×2 (00:30)
[2020-01-06] MEDS ORDERED: ACETAMINOPHEN 325 MG TABLET PO SCH (00:30)
[2020-01-06] MEDS ORDERED: ACETAMINOPHEN 325 MG TABLET PO PRN (00:30)
[2020-01-06] MEDS ORDERED: PROMETHAZINE-DM 6.25 MG-15 MG/5 ML UDC PO PRN (00:30)
--- NOTE | 2020-01-06 00:41 | NUR ---
CONSULTATION PAGED/CALLED Reason for Consultation: ALOC Person Who was Notified: DR Rosio DUFF Consulting Physician: DR Michele DUFF Manager Critical Care Unit Specialty: Ordering Physician: Geno LEDESMA
[2020-01-06 01:59] VITALS: BP_SYST 120
--- NOTE | 2020-01-06 04:06 | NUR ---
CONSULT; CONSULT CALLED FOR DR. MIRIAN DUNN I SPOKE WITH ELYSE WILKES REASON FOR CONSULT: IBIS CANCER REQUESTING CONSULT: DR. TINAJERO BEEF CATTLE FARM MANAGER PHONE NUMBER: [phone]
[2020-01-06] MEDS: NORMAL SALINE 5 ML DISP.SYRIN IVF SCH ×3 (05:12→20:42)
[2020-01-06] MEDS ORDERED: NORMAL SALINE 5 ML DISP.SYRIN IVF SCH (06:00)
--- NOTE | 2020-01-06 06:05 | NUR ---
CLOSING NOTES Patient resting in bed, awake, breathing evenly and nonlabored on room air. IV was started last night on left forearm 22g, patent and benign, patient tolerated it well. Patient also has a port-a-cath on the right upper chest. IV on the left forearm flushed this morning, still patent and benign, no s/s of infection or infiltration noted. Patient denies any pain at this time. No s/s of distress at this time, no other needs at this time. Needs met throughout the shift. Fall/safety precautions, will endorse care to morning shift RN.
[2020-01-06] MEDS: LevALBUTEROL HCL 1.25 MG/0.5 ML *CONC.* VIAL.NEB (XOPENEX CONC.) INH SCH ×3 (07:32→19:40)
[2020-01-06] MEDS ORDERED: DEXAMETHASONE SOD PHOSPHATE 4 MG/ML VIAL IVP ONE (07:45)
--- NOTE | 2020-01-06 07:57 | NUR ---
Nutrition Update Ceferino scale 17 noted. Pt admitted for altered level of consciousness Diet: Regular Diet BMI: 26.2 kg/m2 RD to follow per nutrition care standards.
[2020-01-06 08:00] VITALS: BP_SYST 97
--- NOTE | 2020-01-06 08:00 | NUR ---
Note Pt sitting up in bed eating her breakfast. No SOB/resp distress or pain/discomfort noted at this time. IV in left forearm intact and patent at this time. No needs noted at this time. Call light within reach.
--- NOTE | 2020-01-06 08:11 | NUR ---
CONSULTATION: REASON FOR CONSULT: BRAIN MASS CONSULTING PHYSICIAN: SHERIN SANCHEZ MD ORDERED BY: TANVI SPOKE WITH DEANNA [phone] DR TAVARES IS ROLL CUTTER AND IS AWARE OF HER SUSPENSION AND WILL TAKE CARE OF IT BEFORE SHE SEES THE PATIENT
--- NOTE | 2020-01-06 08:14 | NUR ---
CONSULTATION: REASON FOR CONSULT: LIVER METS CONSULTING PHYSICIAN: MONICA BARBA ORDERED BY: TANVI SPOKE WITH DR BARBA HIMSELF AND IS AWARE OF CONSULT [phone]
--- NOTE | 2020-01-06 08:15 | NUR ---
Note Dr Starr (neuro) called and update on pt's status given. stated pt needed to be moved to contracted hospital for further neuro care - [facility] not equipped for this particular neuro surgery and care.
[2020-01-06] MEDS: PANTOPRAZOLE SODIUM 40 MG TAB PO SCH (08:26)
[2020-01-06] MEDS: levETIRAcetam 500 MG in NS 100 ML IV SCH ×3 (08:26→20:42)
[2020-01-06] MEDS: guaiFENesin ER 600 MG TAB PO SCH ×2 (08:26→20:42)
[2020-01-06] MEDS: POTASSIUM CHLORIDE 20 MEQ TAB.PRT.SR PO SCH (08:26)
[2020-01-06] MEDS: FOLIC ACID 1 MG TABLET PO SCH (08:26)
[2020-01-06] MEDS: CYANOCOBALAMIN 1000 mCg TABLET PO SCH (08:26)
[2020-01-06] MEDS ORDERED: metroNIDAZOLE 500 MG TABLET PO SCH (09:00)
[2020-01-06] MEDS ORDERED: levoFLOXacin 500 MG TABLET PO SCH (09:00)
[2020-01-06] MEDS ORDERED: FLUCONAZOLE 100 MG TABLET (DIFLUCAN) PO SCH (09:00)
[2020-01-06] MEDS ORDERED: predniSONE 20 MG TABLET PO SCH (09:00)
--- NOTE | 2020-01-06 09:15 | NUR ---
Note Dr Waldron on the floor to assess pt. was informed of Dr Starr inquiry and request pt be moved to contracted hospital. Dr Waldron stated he would take care of transfer and plan of care.
--- NOTE | 2020-01-06 09:19 | NUR ---
CONSULTATION: REASON FOR CONSULT: BRAIN MASS CONSULTING PHYSICIAN: RADHA DUFF ORDERED BY: TANVI SPOKE WITH SUHA [phone]
--- NOTE | 2020-01-06 09:45 | NUR ---
Note Pt's Navi called for update on pt's status.
--- NOTE | 2020-01-06 11:25 | NUR ---
Note Dr Bishop (Onc) called for status on pt and plan of care.
[2020-01-06] MEDS ORDERED: GADOBENATE DIMEGLUMINE 529 MG/ML, 15 ML VIAL IV ONE (11:38)
[2020-01-06 11:53] VITALS: BP_SYST 106
[2020-01-06] MEDS: DEXAMETHASONE SOD PHOSPHATE 4 MG/ML VIAL IVP SCH ×2 (12:02→17:18)
--- NOTE | 2020-01-06 14:15 | NUR ---
Note Pt went for MRI of head at 1040am via gurney and returned to floor at 1145am. Pt resting in bed at this time. Denies any needs at this time. Pt has been next to nurses' station for close observation for needs and care all shift. Pt has Right upper chest Ryan cath - saline locked all shift. Call light within reach.
[2020-01-06 16:10] VITALS: BP_SYST 122
--- NOTE | 2020-01-06 17:20 | NUR ---
Note Dr Yang (neuro) at bedside assessing pt.
--- NOTE | 2020-01-06 18:45 | NUR ---
Note Pt sitting up in bed eating her dinner. Pt was checked on q1' and PRN all shift for needs and care. Pt was maintained with safety precautions all shift. No SOB/resp distress or pain/discomfort noted all shift. IV in left forearm intact and patent. No needs noted at this time. Call light within reach.
--- NOTE | 2020-01-06 19:45 | NUR ---
OPENING NOTES Received report from MIKE Jones. Patient resting in bed, awake, breathing evenly and nonlabored, currently getting breathing treatment, RT at bedside. Patient has an IV on left forearm 22g, patent and benign, no s/s of infection or infiltration noted at this time. Patient also has a port-a-cath on the right upper chest. Educated patient on plan of care, fall/safety/seizure precautions, call light system, patient stated understanding. Fall/safety/seizure precautions, will continue to monitor.
[2020-01-06 20:40] VITALS: BP_SYST 100
[2020-01-07] VITALS: BP_SYST 98
[2020-01-07] MEDS: DEXAMETHASONE SOD PHOSPHATE 4 MG/ML VIAL IVP SCH ×4 (00:13→17:39)
[2020-01-07] MEDS: LevALBUTEROL HCL 1.25 MG/0.5 ML *CONC.* VIAL.NEB (XOPENEX CONC.) INH SCH ×3 (02:00→13:26)
[2020-01-07] MEDS: NORMAL SALINE 5 ML DISP.SYRIN IVF SCH ×2 (05:54→15:17)
--- NOTE | 2020-01-07 06:06 | NUR ---
CLOSING NOTES Patient resting in bed, eyes closed, breathing evenly and nonlabored on room air. Patient had her medications when due, patient tolerated them well. Radiology was unable to do CT yesterday, per Marge, they will do it first thing this morning. Hygiene care was done. Patient denied any pain throughout the shift. Needs met throughout the shift. No s/s of distress at this time, no other needs at this time. Fall/safety/seizure precautions, will endorse care to morning shift RN.
[2020-01-07 06:34] LABS: BASOPHILS % (AUTO) 0.2 % (0.0-2.0); EOSINOPHILS % (AUTO) 0.1 % (0.0-4.0); HEMATOCRIT 36.7 % (36-48); HEMOGLOBIN 12.8 g/dL (12.0-16.0); LYMPHOCYTES # (AUTO) 0.5 K/uL (1.0-5.5); LYMPHOCYTES % (AUTO) 5.9 % (20.5-51.5); MEAN CORPUSCULAR HEMOGLOBIN 33 pg (27-31); MEAN CORPUSCULAR HGB CONC 35 % (32-36); MEAN CORPUSCULAR VOLUME 95 fL (79.0-98.0); MONOCYTES # (AUTO) 0.1 K/uL (0.0-1.0); MONOCYTES % (AUTO) 1.6 % (1.7-9.3); NEUTROPHILS # (AUTO) 7.1 K/uL (1.8-7.7); NEUTROPHILS % (AUTO) 92.2 % (40.0-70.0); PLATELET COUNT (AUTO) 184 K/uL (130-430); RED BLOOD CELL COUNT(AUTO) 3.87 MIL/uL (4.2-6.2); RED CELL DISTRIBUTION WIDTH 14.4 % (9.0-15.0); WHITE BLOOD COUNT (AUTO) 7.7 K/uL (4.8-10.8)
[2020-01-07 06:55] LABS: CREATININE 1.39 mg/dL (0.55-1.30); POTASSIUM 4.2 mmol/L (3.5-5.1)
--- NOTE | 2020-01-07 07:20 | NUR ---
opening note report was endorsed by night nurse. patient appears to be resting all safety precautions in place. no other needs at this time.
[2020-01-07 08:58] VITALS: BP_SYST 110; BP_SYST 96
[2020-01-07] MEDS: FOLIC ACID 1 MG TABLET PO SCH (09:00)
[2020-01-07] MEDS: POTASSIUM CHLORIDE 20 MEQ TAB.PRT.SR PO SCH (09:00)
[2020-01-07] MEDS: levETIRAcetam 500 MG in NS 100 ML IV SCH (09:00)
[2020-01-07] MEDS: PANTOPRAZOLE SODIUM 40 MG TAB PO SCH (09:01)
[2020-01-07] MEDS: guaiFENesin ER 600 MG TAB PO SCH (09:01)
[2020-01-07] MEDS: CYANOCOBALAMIN 1000 mCg TABLET PO SCH (09:01)
--- NOTE | 2020-01-07 09:09 | NUR ---
medication Patients scheduled medication given as ordered. patient tolerated well. patient is awake and alert no signs of any distress, breathing is equal and non labored. Patient has no complaints at this time. Patient educated contact officer light, call light is with patient.
--- NOTE | 2020-01-07 11:36 | NUR ---
MEDICATION PATIENTS SCHEDULED MEDICATION GIVEN PER ORDER. PATIENT IS AWAKE AND ALERT, SITTING UP IN BED, NO SIGNS OF ANY DISTRESS, BREATHING IS EQUAL AND NON LABORED. PATIENT EDUCATED MARINE EXTENSION AGENT LIGHT, CALL LIGHT IS WITH HER. PATIENT IS CLOSE TO NURSES STATION. NO OTHER NEEDS AT THIS TIME. WILL CONTINUE TO MONITOR.
[2020-01-07 12:31] VITALS: BP_SYST 116
--- NOTE | 2020-01-07 13:00 | NUR ---
RN ROUNDING PATIENT IS SITTING IN BED WATCHING TV. PATIENT HAS NO COMPLAINTS AT THIS TIME. PATIENT HAS ALL SAFETY PRECAUTIONS IN PLACE. CALL LIGHT IS WITH HER, EDUCATED TO USE FOR ASSISTANCE. PATIENT IS CLOSE TO NURSES STATION. PATIENT HAS NO OTHER NEEDS AT THIS TIME.WILL CONTINUE TO MONITOR.
--- NOTE | 2020-01-07 15:22 | NUR ---
MEDICATION PATIENTS SCHEDULED MEDICATION GIVEN PER ORDER. PATIENT IS AWAKE AND ALERT . PATIENT UPDATED ON PLAN OF CARE. PATIENT HAS NO FURTHER QUESTION. PATIENT IS CLOSE TO NURSES STATION. PATIENT HAS CALL LIGHT WITH HER, EDUCATED TO USE CALL LIGHT FOR ASSISTANCE. PATIENT HAS NO OTHER NEEDS AT THIS TIME.
--- NOTE | 2020-01-07 15:38 | NUR ---
CASE MANAGEMENT SPOKE WITH TIFFANY FROM [facility] CASE MANAGEMENT REQUESTING THAT PATIENT h & p , FACE SHEET, COVID RESULTS AND ANY PERTAINED INFORMATION FAXED TO [facility] AT . PATIENT INFORMED OF DISCHARGE PLAN HAS NO FURTHER QUESTIONS.
[2020-01-07 16:08] VITALS: BP_SYST 110
[2020-01-07 17:30] VITALS: BP_SYST 110
--- NOTE | 2020-01-07 17:40 | NUR ---
ROUTINE MEDS ADMINISTERED ORDERED PER MD, EDUCATION GIVEN, TOLERATED WELL. CONTINUE TO MONITOR.
--- NOTE | 2020-01-07 18:48 | NUR ---
RN CLOSING NOTE PATIENT IS AWAKE AND ALERT LAYING IN BED. PATIENT HAS NO COMPLAINTS AT THIS TIME. PATIENT SHOWS NO SIGNS OF ANY DISTRESS, BREATHING IS EQUAL AND NON LABORED. PATIENT CHANGED INTO ORANGE GOWN AND BEDDING FOR TRANSFER. PATIENT PLACED IN A DIAPER FOR TRANSFER. PATIENT IS AWARE OF TRANSFER, PATIENTS FAMILY MEMBER IS ALSO AWARE. PATIENT HAS ALL BELONGINGS WITH HER. IV IS SALINE LOCKED. PATIENT HAS CALL LIGHT WITH HER EDUCATED TO USE FOR ASSISTANCE. PATIENT IS CLOSE TO NURSES STATION. PATIENT HAS NO OTHER NEEDS AT THIS TIME. DR. TINAJERO IS AWARE THAT PATIENT IS BEING TRANSFERRED TONIGHT.
== END 2020-01-07 20:42 | disposition short-term general hospital (02) | DRG 71 ==
LOC: SED 12:11 → SMU 21:03
PROVIDERS: ADMIT Internal Medicine Hospice and Palliative Medicine; ATTEND Internal Medicine Hospice and Palliative Medicine
DX: G93.9 Disorder of brain, unspecified (principal); C34.90 Malignant neoplasm of unspecified part of unspecified bronchus or lung; Z20.828 Contact with and (suspected) exposure to other viral communicable diseases; Z92.3 Personal history of irradiation
CPT/HCPCS: 36415; 70450-TC; 70553; 71045; 71250-TC; 76376; 80048; 80053; 81000-TC; 83605; 84484; 85025; 85610-TC; 85730-TC; 87040-TC; 87086; 93005; 94640; 94760; 96365; 96367; 99285; A9577; J0696; J1100; J1953; J7060; J7612

== ENCOUNTER 2020-12-29 10:43 | Emergency (ER) | payer OTHER, SELFPAY ==
[~2020-12-29] VITALS: Ht 162.6 cm; Wt 72.6 kg
[2020-12-29 10:43] VITALS: BP_SYST 131
[2020-12-29 11:40] LABS: BASOPHILS % (AUTO) 0.5 % (0.0-2.0); EOSINOPHILS # (AUTO) 0.2 K/uL (0.0-0.4); HEMATOCRIT 41.6 % (36-48); HEMOGLOBIN 14.2 g/dL (12.0-16.0); LYMPHOCYTES # (AUTO) 0.7 K/uL (1.0-5.5); LYMPHOCYTES % (AUTO) 11.9 % (20.5-51.5); MEAN CORPUSCULAR HEMOGLOBIN 31 pg (27-31); MEAN CORPUSCULAR HGB CONC 34 % (32-36); MEAN CORPUSCULAR VOLUME 90 fL (79.0-98.0); MONOCYTES # (AUTO) 0.4 K/uL (0.0-1.0); MONOCYTES % (AUTO) 6.6 % (1.7-9.3); NEUTROPHILS # (AUTO) 4.8 K/uL (1.8-7.7); PLATELET COUNT (AUTO) 170 K/uL (130-430); RED BLOOD CELL COUNT(AUTO) 4.61 MIL/uL (4.2-6.2); RED CELL DISTRIBUTION WIDTH 14.6 % (9.0-15.0); WHITE BLOOD COUNT (AUTO) 6.2 K/uL (4.8-10.8)
[2020-12-29 11:50] LABS: ALANINE AMINOTRANSFERASE 33 U/L (12-78); ALBUMIN 3.5 g/dL (3.4-4.8); ANION GAP 10 (5-15); ASPARTATE AMINOTRANSFERASE 24 U/L (10-37); CALCIUM 9.6 mg/dL (8.4-11.0); CHLORIDE 104 mmol/L (98-107); CREATININE 1.33 mg/dL (0.55-1.30); GLUCOSE 129 mg/dL (70-99); POTASSIUM 4.8 mmol/L (3.5-5.1); SODIUM SERUM 138 mmol/L (136-145); TOTAL BILIRUBIN 0.5 mg/dL (0.0-1.0); UREA NITROGEN, BLOOD 17 mg/dL (8-21)
[2020-12-29 14:11] VITALS: BP_SYST 108
== END 2020-12-29 14:11 | disposition home or self-care (01) ==
LOC: SED 10:43
DX: R06.4 Hyperventilation (principal); Z79.899 Other long term (current) drug therapy
CPT/HCPCS: 36415; 70450-TC; 71045; 76376; 80053; 83880; 84484; 85025; 93005; 99285